=== PATIENT | female | born 1970 ===

== ENCOUNTER 2020-03-27 08:31 | Outpatient (REF) | payer OTHER, MEDICAID, SELFPAY ==
[2020-03-27 11:20] LABS: MANUAL DIFF FLAG NO
[2020-03-27 11:34] LABS: Basophils Absolute Auto 0.1 X10*3/uL (0.0-0.2); Basophils Percent Auto 1.1 % (0-2); Eosinophils Absolute Auto 0.3 X10*3/uL (0.0-0.4); Eosinophils Percent Auto 4.1 % (0-4); Hematocrit 51.7 % (37-47); Hemoglobin 17.2 g/dl (12.0-16.0); Imm Gran Abs Auto 0.02 X10*3/uL (0.00-0.03); Imm Gran Pct Auto 0.3 % (0.0-0.4); Lymphocytes Absolute Auto 2.1 X10*3/uL (1.2-4.9); Lymphocytes Percent Auto 33.8 % (20-40); Mean Corpuscular HGB Conc 33.3 g/dl (31.0-35.0); Mean Corpuscular Hemoglobin 30.6 pg (27.0-33.0); Mean Platelet Volume 10.8 fL (9.4-12.3); Monocytes Absolute Auto 0.6 X10*3/uL (0.1-1.2); Monocytes Percent Auto 10.4 % (2-11); Neutrophils Absolute Auto 3.1 X10*3/uL (2.0-8.3); Neutrophils Percent Auto 50.3 % (45-73); Platelet Count 239 X10*3/uL (160-400); Red Blood Count 5.62 X10*6/uL (4.20-5.50); Red Cell Distribution Width 13.6 % (11.0-16.0); White Blood Count 6.1 X10*3/uL (4.8-10.8)
[2020-03-27 12:07] LABS: Alanine Aminotransferase 18 U/L (0-31); Albumin Level 4.9 g/dL (3.5-5.0); Alkaline Phosphatase 60 U/L (39-117); Anion Gap 15 (12-20); Aspartate Amino Transferase 21 U/L (5-31); Bilirubin Total 1.3 mg/dL (0.0-1.0); Blood Urea Nitrogen 17 mg/dL (9-16); C Reactive Protein 0.05 mg/dL (< or = 0.50); Calcium 9.4 mg/dL (8.4-10.2); Carbon Dioxide 24 mmol/L (22-29); Chloride 103 mmol/L (96-108); Cholesterol 238 mg/dL; Estimated Glomerular Filt Rate > 60; Glucose Fasting 87 mg/dL (60-99); HDL Cholesterol 79 mg/dL; LDL Cholesterol Calculated 140 mg/dl; Potassium 4.3 mmol/l (3.3-5.1); Sodium 138 mmol/L (135-145); Total Protein 7.7 g/dL (6.5-8.0); Triglycerides 96 mg/dL
[2020-03-27 12:08] LABS: TSH reflex Free T4 0.93 mIU/mL (0.32-4.0)
[2020-03-27 12:41] LABS: Erythrocyte Sedimentation Rate 1 MM/HR (0-20)
[2020-03-28 09:22] LABS: Lyme Blot 0.93 index
[2020-03-29 13:53] LABS: IgG P93 Abs NON-REACTIVE; Lyme IgG Line Blot Interp. POSITIVE (NEGATIVE)
== END 2020-03-27 08:32 | disposition home or self-care (01) ==
LOC: HO.HMGCLDS 08:31
PROVIDERS: PCP Internal Medicine; Visit Provider Internal Medicine
DX: E78.00 Pure hypercholesterolemia, unspecified (principal); R07.89 Other chest pain; M50.30 Other cervical disc degeneration, unspecified cervical region; M54.89 Other dorsalgia; M25.511 Pain in right shoulder; M25.512 Pain in left shoulder; F17.200 Nicotine dependence, unspecified, uncomplicated
CPT/HCPCS: 36415; 80053; 80061; 84443; 85025; 85652; 86140; 86618

== ENCOUNTER 2021-02-07 08:20 | Outpatient (REF) | payer OTHER, MEDICAID, SELFPAY ==
[2021-02-07 08:59] LABS: Hemoglobin 15.9 g/dl (12.0-16.0); Mean Corpuscular HGB Conc 34.6 g/dl (31.0-35.0); Mean Corpuscular Hemoglobin 32.1 pg (27.0-33.0); Mean Corpuscular Volume 92.7 fL (80-98); Mean Platelet Volume 9.6 fL (9.4-12.3); Platelet Count 218 X10*3/uL (160-400); Red Blood Count 4.96 X10*6/uL (4.20-5.50); Red Cell Distribution Width 12.8 % (11.0-16.0); White Blood Count 5.5 X10*3/uL (4.8-10.8)
[2021-02-07 09:28] LABS: Anion Gap 12 (12-20); Blood Urea Nitrogen 16 mg/dL (9-16); Calcium 10.1 mg/dL (8.4-10.2); Carbon Dioxide 27 mmol/L (22-29); Chloride 105 mmol/L (96-108); Estimated Glomerular Filt Rate > 60; Glucose Random 95 mg/dL (60-115); Iron 60 mcg/dL (30-160); Percent Iron Saturation 15 % (15-50); Potassium 4.4 mmol/L (3.3-5.1); Sodium 140 mmol/L (135-145); Total Iron Binding Capacity 390 mcg/dL (228-428); Unsaturated Iron Binding 330 ug/dL
[2021-02-07 09:49] LABS: Vitamin D 25-OH Total 29.6 ng/mL (>30)
[2021-02-07 10:05] LABS: Folate 11.9 ng/mL (> or = 4.0); Vitamin B12 423 pg/mL (200-900)
[2021-02-12 03:25] LABS: Zinc 75 mcg/dL (60-130)
== END 2021-02-07 08:21 | disposition home or self-care (01) ==
LOC: HO.LAB 08:20
PROVIDERS: PCP Internal Medicine; Visit Provider Physician Assistant
DX: R20.2 Paresthesia of skin (principal); R42 Dizziness and giddiness; D50.9 Iron deficiency anemia, unspecified
CPT/HCPCS: 36415; 80048; 82306; 82607; 82746; 83540; 83735; 84630; 85027

== ENCOUNTER 2022-04-14 09:59 | Outpatient (REF) | payer OTHER, MEDICAID, SELFPAY ==
--- NOTE | 2022-04-14 14:12 | PFT_ITS ---
Forced vital capacity is 110%, FEV1 96%, FEV1/FVC ratio 69. [id number] is 60% and MVV 109%. Bronchodilator challenge not given because patient was afraid of some side effects. Total lung capacity 116% and residual volume 115%. Diffusion capacity 80%. CONCLUSION: There is evidence of mild obstructive airway disorder mainly involving small airways. As noted above, the bronchodilator challenge was not given. Clinical correlation is recommended. MD PRIYA Sherman/ALIVIA / [phone]
== END 2022-04-14 10:00 | disposition home or self-care (01) ==
LOC: HO.RESP 09:59
PROVIDERS: PCP Internal Medicine; Visit Provider Internal Medicine
DX: J43.9 Emphysema, unspecified (principal); F17.200 Nicotine dependence, unspecified, uncomplicated
CPT/HCPCS: 94010; 94727; 94729

== ENCOUNTER 2022-09-09 12:12 | Outpatient (REF) | payer OTHER, MEDICAID, SELFPAY ==
--- NOTE | ~2022-09-09 | XR_ITS ---
EXAMINATION: XR CHEST CLINICAL INFORMATION: Emphysema COMPARISON: April 24, 2013 TECHNIQUE: 2 views of the chest were obtained. FINDINGS: There is no evidence of acute parenchymal disease, pneumothorax, or significant pleural effusion. There is some blunting of the posterior sulcus and costophrenic angles bilaterally which appears to be related to hyperinflation. Heart normal size. No evidence of pulmonary edema. XR/XR chest 2V IMPRESSION: No acute disease.
== END 2022-09-09 12:13 | disposition home or self-care (01) ==
LOC: HO.HMGCX 12:12
PROVIDERS: PCP Internal Medicine; Visit Provider Internal Medicine
DX: J43.9 Emphysema, unspecified (principal); F17.200 Nicotine dependence, unspecified, uncomplicated
CPT/HCPCS: 71046

== ENCOUNTER 2023-02-18 09:31 | Outpatient (AMB) | payer OTHER, MEDICAID, SELFPAY ==
[2023-02-18 09:32] VITALS: BP 124/82; PULSE 82; O2SAT 99; BMI 22.1
--- NOTE | 2023-02-18 09:32 | A.OFFPC_ITS ---
Vital Signs 02/18/23 09:32 Height 5 ft 3 in Weight 124 lb 8 oz BMI 22.1 BP 124/82 Blood Pressure Location Lt brachial Position Sitting Pulse 82 Pulse Source Pulse Oximeter Pulse Oximetry (%) 99 Oxygen Delivery Method Room Air Intake Visit Reasons: elevated BP, dysphagia Take Off Man Required: No Accompanied by: Self / Same As Patient Allergies bee pollen [BEE STINGS] Allergy (Severe, Verified 02/18/23 09:59) SWELLING cortisone [CORTISONE] Allergy (Intermediate, Verified 02/18/23 09:59) EUPHORIC REACTION latex [LATEX] Allergy (Intermediate, Verified 02/18/23 09:59) RASH Fish Containing Products Allergy (Unknown, Verified 02/18/23 09:59) SENSITIVE - RED MOSQUITOS Allergy (Intermediate, Uncoded 02/18/23 09:59) SWELLING Medication List - Last Reconciled 02/18/23 by Kory Leon MD clindamycin phosphate 1% 1 appl topical BID 30 days clindamycin-benzoyl peroxide 1-5 % 1 appl topical DAILY 30 days dapsone 5% topical hydrocodone-acetaminophen 5-325 mg 1 tab PO Q8H PRN 7 days mupirocin 2% 1 appl topical TID naproxen 500 mg PO BID PRN 30 days nicotine 1 patch transdermal Q24H 28 days silver sulfadiazine 1% (Silvadene) 1 appl topical BID PRN 5 days tretinoin 0.05% 1 appl topical BEDTIME Tobacco use date assessed: 02/18/23 Dental Screening Dental Screen Date: 02/18/23 Did you have a dental visit in the last 12 months?: Yes Did you have a dental problem in the last 6 months where you did not have access to dental care?: No Was dental information given to patient?: Patient has dentist HPI elevated BP, dysphagia HPI Details Patient comes in today for her follow up visit States that she was sick about a month ago (with cold symptoms and cough/congestion) but she did not really take anything other than some OTC meds occasionally States that most of her symptoms have since cleared up but her ears still feel full often Also still has some occasional cough (cough is non-productive) - is still smoking Relates (+) fatigue and frequent muscle aches and pains especially now with the cold weather starting - has fibromyalgia Still has on and off headaches but denies any fever or dizziness Notes (+) sensation of fullness over her left sinuses States that the left side of her throat still feels like there is something there and this occasionally feels like something is dripping down from there; denies any sore throat States that she missed her appt with ENT a few weeks ago - wants to know if she needs another referral She denies any chest pains, no SOB although her chest still feels somewhat tight at times - wants to know if her PFTs done last March 2022 came out okay No nausea/vomiting, no abdominal pain No change in bowel habits noted Needs a few of her Rx refilled PFSH Medical History Cervical disc disease Right leg pain Emphysema lung Smoker Somatoform pain disorder Fibromyalgia Lyme disease Surgical History History of prior ablation treatment History of tooth extraction Family History Father Medical history unknown Mother Hypertension CVD (cardiovascular disease) Social History Housing: House Alcohol intake: never Patient Tobacco Use Status: Current everyday Tobacco user Tobacco use type: Cigarette Cigarettes Per Day: 12 e-Cigarette/Vaping Use: Former Use Second Hand Smoke Exposure: No service: No Current occupational status: employed and disabled Current occupational exposures/hazards: No Cognitive needs: Yes Hearing needs: No Vision needs: No Questionnaire PHQ-9 Over the last 2 weeks, how often have you been bothered by any of the following problems? 1. Little interest or pleasure in doing things: not at all 2. Feeling down, depressed, or hopeless: not at all 3. Trouble falling or staying asleep, or sleeping too much: not at all 4. Feeling tired or having little energy: not at all 5. Poor appetite or overeating: not at all 6. Feeling bad about yourself - or that you are a failure or have let yourself or your family down: not at all 7. Trouble concentrating on things, such as reading the newspaper or watching television: not at all 8. Moving or speaking so slowly that other people could have noticed. Or the opposite - being so fidgety or restless that you have been moving around a lot more than usual: not at all 9. Thoughts that you would be better off or of hurting yourself in some way: not at all Total score: 0 Depression Screening Interpretation: Negative Depression Screening Done: Yes 08277 - PHQ-9 Billing: Yes Source: Developed by Drs. Forest Whiting, Maria Crowe, Jose Carlos Rinaldi and colleagues, with an educational inna from [employer]. Thrive Questionnaire Date Thrive assessed: 02/18/23 I am a: Patient What is your living situation today?: I have a steady place to live Within the past 12 months, did the food you bought not last and you didn't have the money to get more?: Never true Within the past 12 months, did you worry whether your food would run out before you got money to buy more?: Never true Do you have trouble paying for medicines?: No Do you have trouble getting transportation to medical appointments?: No Do you have trouble paying your heating and electricity bill?: No Do you have trouble taking care of your child, family member or friend?: No Do you have trouble with day-to-day activities such as bathing, preparing meals, shopping, managing finances, etc.?: No Are you currently unemployed and looking for a job?: No Are you interested in more education?: No Please select the resources that you would like help with: None Currently or been in a relationship where the following occur: no concerns reported AUDIT C Alcohol Use Questionnaire (AUDIT-C) 1. How often do you have a drink containing alcohol?: Never Total Score: 0 Score Reviewed/Action Taken: Yes LOUISE-7 AMB Questionnaire LOUISE-7 Date LOUISE - 7 assessed: 02/18/23 Feeling nervous, anxious, or on edge: 0 = Not at all Not being able to stop or control worryin = Not at all Worrying too much about different things: 0 = Not at all Trouble relaxin = Not at all Being so restless that it is hard to sit still: 0 = Not at all Becoming easily annoyed or irritable: 0 = Not at all Feeling afraid as if something awful might happen: 0 = Not at all Total LOUISE-7 score (0-4 normal; 5-9 mild; 10-14 moderate; 15-21 severe): 0 Source: Developed by Drs. Forest Whiting, Maria Crowe, Jose Carlos Rinaldi and colleagues, with an educational inna from [employer]. Review of Systems Const Reports fatigue (chronic), Denies fever(s) and Reports headache(s) (on and off) ENT Details: feels some lumps on the sides of her neck/throat Reports dysphagia (mostly due to recurrent sensation of tightness in her throat), Denies dizziness, Denies otalgia (but ears feel full), Reports headache(s) (on and off), Denies neck mass (but feels a recurrent sensation of tightness on the left anterior neck area), Reports neck pain (chronic, especially over the left side), Denies odynophagia, Denies sinus pain, Reports sinus pressure (on the left side) and Denies sore throat Card Denies chest pain, Denies palpitations and Reports dyspnea on exertion (mild, chronic) Resp Denies chest congestion (but chest feels tight at times), Reports cough (on and off, non-productive), Denies pain on inspiration, Reports dyspnea on exertion (mild, chronic) and Denies wheezing GI Denies abdominal pain, Denies constipation, Reports dysphagia (mostly due to recurrent sensation of tightness in her throat), Denies heartburn, Denies diarrhea, Denies nausea, Denies odynophagia and Denies vomiting Denies difficulty voiding, Denies nocturia and Denies dysuria Musc Details: (+) heavy sensation, pain and discomfort over the right lower extremity Reports back pain, Reports myalgias (diffuse) and Reports neck pain (chronic, especially over the left side) Neuro Denies dizziness and Reports headache(s) (on and off) Endo Reports fatigue (chronic) and Denies palpitations Aller/Immun Denies wheezing Physical exam (Primary Care) Vital Signs: Last Vital Signs Pulse 82 02/18/23 09:32 BP 124/82 02/18/23 09:32 Pulse Ox 99 02/18/23 09:32 Oxygen Delivery Method Room Air 02/18/23 09:32 BMI result Body Mass Index 22.1 Tobacco/Smoking Status: Tobacco use Status Tobacco use date assessed 11/02/23 11/02/23 09:37 Patient Tobacco Use Status Current everyday Tobacco 02/18/23 09:37 Tobacco use type Cigarette 02/18/23 09:37 e-Cigarette/Vaping Use Former Use 02/18/23 09:37 PHQ-9: PHQ-9 Score PHQ-9: Total score 0 02/18/23 09:37 Depression Screening Interpretation: Negative Thrive Assessment: Date of Thrive Assessment Date Thrive assessed 02/18/23 02/18/23 09:37 Currently or been in a relationship where the following occur: no concerns reported Const General: no acute distress, alert and tired appearing HENMT Ears: TM's normal bilaterally and EAC's normal Face and sinus: Yes sinuses nontender Throat: Yes posterior oropharynx normal and Yes tonsils normal (no TP congestion) Neck Other: (+) palpable, non-tender lymph nodes over the anterolateral aspect of her neck bilaterally; (+) tenderness over the muscles around the neck, especially over the posterior and left posterolateral aspect of the neck Resp Auscultation: no rales, rhonchi (occasional) throughout, no wheezes and diminished lung sounds (slightly, bilaterally) Cardio Rate: regular rate Rhythm: regular rhythm Heart sounds: no murmurs GI Palpation (GI): Soft to palpation and nontender Auscultation: normal bowel sounds Back/Spine/Pelvis Cervical Spine: cervical muscular tenderness and Cervical spine tenderness Thoracic/Lumbar Spine: lumbar spinal tenderness Skin Rashes: no rashes Extrem General: Yes no clubbing, cyanosis or edema Assessment and Plan Assessment & Plan (1) Bronchitis: Code(s): J40 - Bronchitis, not specified as acute or chronic Plan: Will start her on Augmentin 875 mg BID x 10 days Advised that this should cover any potential infections she would have in her ears, sinuses and lungs (2) Emphysema lung: Comment: Emphysematous findings are noted in her chest CT report done at [facility] in 2019. Chest x-ray done in April 2020 also mentioned (+) hyperinflation of the lungs and with her smoking history, advised that she most likely has at least early COPD Code(s): J43.9 - Emphysema, unspecified Qualifiers: Emphysema type: centrilobular Qualified Code(s): J43.2 - Centrilobular emphysema Plan: Reminded patient that her repeat chest x-rays done back in August 2022 revealed (+) some blunting of the posterior sulcus and costophrenic angles bilaterally that appears to be related to hyperinflation but her chest x-ray was otherwise normal PFTs done in March 2022 were inconclusive as patient declined the bronchodilators for the test; preliminary results show some evidence of mild obstructive airway disease (3) Cervical disc disease: Code(s): M50.90 - Cervical disc disorder, unspecified, unspecified cervical region Plan: Patient has been to pain management (with both [facility] and [facility]) and has received injection Tx in the past but could not tolerate the injected medication(s), including a trial of Botox, due to side effects and remains NOT interested in going back to pain management States that she has mostly been getting by with a combination of neck exercises, massage therapy and her Rxs that include Naproxen 500 mg BID PRN and Vicodin 5- 325 mg PRN occasionally Offered to send her for repeat cervical spine x-rays but she declined as she does not think that it is going to provide any additional helpful information for us at this time and she does not want to keep getting exposed to x-rays needlessly (4) Dysphagia: Code(s): R13.10 - Dysphagia, unspecified Qualifiers: Dysphagia type: unspecified Qualified Code(s): R13.10 - Dysphagia, unspecified Plan: Barium swallow done at [facility] back in 2018 came out normal Advised that it has been a few years now and a repeat barium swallow may be helpful in helping us figure out her symptoms but she declined - states that she will call for order if she changes her mind about this She was referred previously to ENT for evaluation and recommendations but she missed her appt a few weeks ago - is advised that her referral is still valid and all she needs to do now is to call up the ENT office and ask for another appt to be scheduled (5) Elevated blood pressure reading: Code(s): R03.0 - Elevated blood-pressure reading, without diagnosis of hypertension Plan: BP appears much better today Advised that her previous high BP readings may be due to her increased pain back then Reinforced low sodium diet to help control her blood pressure better and reminded to try to check her BP regularly to monitor this (6) Fibromyalgia: Code(s): M79.7 - Fibromyalgia Plan: Encouraged again on regular exercise and physical activity to help manage her fibromyalgia symptoms better (7) Smoker: Code(s): F17.200 - Nicotine dependence, unspecified, uncomplicated Plan: Counseled again on smoking cessation Patient felt that she was able to quit while she was on nicotine patches but still could not come down from the 14 mg dose Plan To return in 6 months for her next annual physical examination Medications: New amoxicillin-pot clavulanate 875-125 mg 1 tab PO BID 10 days 20 tabs 0RF Refilled clindamycin-benzoyl peroxide 1-5 % 1 appl topical DAILY 30 days 50 grams 1RF naproxen take with food 500 mg PO BID 30 days PRN 60 tabs 0RF pain Coding Level of Care Code Est Pt Level 4 (80242) Diagnoses Bronchitis J40 Centrilobular emphysema J43.2 Emphysema type: centrilobular Cervical disc disease M50.90 Dysphagia, unspecified type R13.10 Dysphagia type: unspecified Elevated blood pressure reading R03.0 Fibromyalgia M79.7 Smoker F17.200
== END 2023-02-18 10:09 | disposition home or self-care (01) ==
PROVIDERS: Visit Provider Internal Medicine
DX: J40 Bronchitis, not specified as acute or chronic (principal); J43.2 Centrilobular emphysema; M50.90 Cervical disc disorder, unspecified, unspecified cervical region; R13.10 Dysphagia, unspecified; R03.0 Elevated blood-pressure reading, without diagnosis of hypertension; M79.7 Fibromyalgia; F17.200 Nicotine dependence, unspecified, uncomplicated
CPT/HCPCS: 99214

== ENCOUNTER 2023-08-26 08:58 | Outpatient (AMB) | payer OTHER, SELFPAY ==
[2023-08-26 09:07] VITALS: BP 156/102; PULSE 76; O2SAT 97; BMI 21.7
--- NOTE | 2023-08-26 09:07 | A.OFFPC_ITS ---
Vital Signs 08/26/23 09:07 Height 5 ft 3 in Weight 122 lb 4 oz BMI 21.7 BP 156/102 H Blood Pressure Location Lt brachial Position Sitting Pulse 76 Pulse Source Pulse Oximeter Pulse Oximetry (%) 97 Oxygen Delivery Method Room Air Intake Visit Reasons: Annual Exam Intake Note: Patient is here today for a physical. 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 Accompanied by: Self / Same As Patient Allergies bee pollen [BEE STINGS] Allergy (Severe, Verified 08/26/23 09:37) SWELLING cortisone [CORTISONE] Allergy (Intermediate, Verified 08/26/23 09:37) EUPHORIC REACTION latex [LATEX] Allergy (Intermediate, Verified 08/26/23 09:37) RASH Fish Containing Products Allergy (Unknown, Verified 08/26/23 09:37) SENSITIVE - RED MOSQUITOS Allergy (Intermediate, Uncoded 08/26/23 09:37) SWELLING Medication List - Last Reconciled 08/26/23 by Kory Leon MD clindamycin phosphate 1% 1 appl topical BID 30 days clindamycin-benzoyl peroxide 1-5 % 1 appl topical DAILY 30 days dapsone 5% topical hydrocodone-acetaminophen 5-325 mg 1 tab PO Q8H PRN 7 days mupirocin 2% 1 appl topical TID naproxen 500 mg PO BID PRN 30 days nicotine 1 patch transdermal Q24H 28 days silver sulfadiazine 1% (Silvadene) 1 appl topical BID PRN 5 days tretinoin 0.05% 1 appl topical BEDTIME Tobacco use date assessed: 08/26/23 Dental Screening Dental Screen Date: 08/26/23 Did you have a dental visit in the last 12 months?: No Did you have a dental problem in the last 6 months where you did not have access to dental care?: No Was dental information given to patient?: No (No Dental Insurance) HPI Annual Exam HPI Details Patient comes in today for his annual physical examination States that she has been experiencing frequent burning and aching sensation in the muscles of her legs for the past 2 months Adds that she has also been experiencing increased pain over the base of her skull on both sides in addition to her chronic neck pain States that everything else feels mostly the same, She still has on and off headaches; denies any fever or dizziness States that it still feels like there is something in her throat often and she sometimes ends up choking when she is swallowing due to her neck tightness She denies any chest pains, her chest still feels somewhat tight at times and she relates chronic HOPPER but states that this is also mostly the same as before No nausea/vomiting, no abdominal pain No change in bowel habits noted She denies any acute urinary symptoms Had her screening mammogram last done on 06/22/2013; she has since refused to get another mammogram again as she always ends up in a lot of pain after the mammogram procedure Had her pap smear and gynecology exam done at [facility] years ago ~ 10 yrs Also states that her screening colonoscopy was ~10 yrs ago (12/26/13) with Dr. Green [facility] Medical History Cervical disc disease Right leg pain Emphysema lung Smoker Somatoform pain disorder Fibromyalgia Lyme disease Surgical History History of prior ablation treatment History of tooth extraction Family History Father Medical history unknown Mother Hypertension CVD (cardiovascular disease) Social History Housing: House Alcohol intake: never Patient Tobacco Use Status: Current everyday Tobacco user Tobacco use type: Cigarette Cigarettes Per Day: 12 e-Cigarette/Vaping Use: Former Use Second Hand Smoke Exposure: No service: No Current occupational status: employed and disabled Current occupational exposures/hazards: No Cognitive needs: Yes Hearing needs: No Vision needs: No Questionnaire PHQ-9 Over the last 2 weeks, how often have you been bothered by any of the following problems? 1. Little interest or pleasure in doing things: not at all 2. Feeling down, depressed, or hopeless: not at all 3. Trouble falling or staying asleep, or sleeping too much: not at all 4. Feeling tired or having little energy: not at all 5. Poor appetite or overeating: not at all 6. Feeling bad about yourself - or that you are a failure or have let yourself or your family down: not at all 7. Trouble concentrating on things, such as reading the newspaper or watching television: not at all 8. Moving or speaking so slowly that other people could have noticed. Or the opposite - being so fidgety or restless that you have been moving around a lot more than usual: not at all 9. Thoughts that you would be better off or of hurting yourself in some way: not at all Total score: 0 Depression Screening Interpretation: Negative Depression Screening Done: Yes 09103 - PHQ-9 Billing: Yes Source: Developed by Drs. Forest Whiting, Maria Crowe, Jose Carlos Rinaldi and colleagues, with an educational inna from [employer]. Thrive Questionnaire Date Thrive assessed: 08/26/23 I am a: Patient What is your living situation today?: I have a steady place to live Within the past 12 months, did the food you bought not last and you didn't have the money to get more?: Never true Within the past 12 months, did you worry whether your food would run out before you got money to buy more?: Never true Do you have trouble paying for medicines?: No Do you have trouble getting transportation to medical appointments?: No Do you have trouble paying your heating and electricity bill?: No Do you have trouble taking care of your child, family member or friend?: No Do you have trouble with day-to-day activities such as bathing, preparing meals, shopping, managing finances, etc.?: No Are you currently unemployed and looking for a job?: No Are you interested in more education?: No Please select the resources that you would like help with: None Currently or been in a relationship where the following occur: no concerns reported THRIVE Score: 0 AUDIT C Alcohol Use Questionnaire (AUDIT-C) 1. How often do you have a drink containing alcohol?: Never 3. How often do you have six or more drinks on one occasion?: Never Total Score: 0 Score Reviewed/Action Taken: Yes LOUISE-7 AMB Questionnaire LOUISE-7 Date LOUISE - 7 assessed: 08/26/23 Feeling nervous, anxious, or on edge: 0 = Not at all Not being able to stop or control worryin = Not at all Worrying too much about different things: 0 = Not at all Trouble relaxin = Not at all Being so restless that it is hard to sit still: 0 = Not at all Becoming easily annoyed or irritable: 0 = Not at all Feeling afraid as if something awful might happen: 0 = Not at all Total LOUISE-7 score (0-4 normal; 5-9 mild; 10-14 moderate; 15-21 severe): 0 Source: Developed by Drs. Forest Whiting, Maria Crowe, Jose Carlos Rinaldi and colleagues, with an educational inna from [employer]. LOUISE-7 Assessment Billing LOUISE-7 Assessment Tool: LOUISE-7 Assessment 33304 Review of Systems Const Denies chills, Reports fatigue (chronic), Denies fever(s) and Reports h eadache(s) (on and off) Eyes Denies blurry vision, Denies change in vision, Denies irritation and Denies itchy eyes ENT Details: feels some lumps on the sides of her neck/throat Reports dysphagia (mostly due to recurrent sensation of tightness in her throat), Denies dizziness, Denies otalgia (but ears feel full often), Reports headache(s) (on and off), Denies neck mass (but feels a recurrent sensation of tightness on the left anterior neck area), Reports neck pain (chronic, especially over the left side), Denies odynophagia, Denies sinus pain and Denies sore throat Card Denies chest pain, Denies palpitations and Reports dyspnea on exertion (mild, chronic) Resp Denies chest congestion (but chest feels tight at times), Reports cough (on and off, non-productive), Denies pain on inspiration, Reports dyspnea on exertion (mild, chronic) and Denies wheezing GI Denies abdominal pain, Denies constipation, Reports dysphagia (mostly due to recurrent sensation of tightness in her throat), Denies heartburn, Denies diarrhea, Denies nausea, Denies odynophagia and Denies vomiting Denies difficulty voiding, Denies nocturia, Denies dysuria and Denies urinary urgency Musc Details: (+) heavy sensation, pain and discomfort over the right lower extremity Reports back pain, Reports myalgias (diffuse) and Reports neck pain (chronic, especially over the left side) Skin/Breast Denies breast pain, Denies breast mass, Denies change in pigmentation, Denies lesions, Denies rash and Denies unusual bruising Neuro Denies dizziness and Reports headache(s) (on and off) Psych Denies anxiety and Denies depression Endo Reports fatigue (chronic) and Denies palpitations Sina/Lymph Denies easy bruising Aller/Immun Denies itchy eyes and Denies wheezing Physical exam (Primary Care) Vital Signs: Last Vital Signs Pulse 76 08/26/23 09:07 BP 156/102 H 08/26/23 09:07 Pulse Ox 97 08/26/23 09:07 Oxygen Delivery Method Room Air 08/26/23 09:07 BMI result Body Mass Index 21.7 Tobacco/Smoking Status: Tobacco use Status Tobacco use date assessed 08/26/23 08/26/23 09:09 Patient Tobacco Use Status Current everyday Tobacco 08/26/23 09:09 Tobacco use type Cigarette 08/26/23 09:09 e-Cigarette/Vaping Use Former Use 08/26/23 09:09 PHQ-9: PHQ-9 Score PHQ-9: Total score 0 08/29/23 22:38 Depression Screening Interpretation: Negative Thrive Assessment: Date of Thrive Assessment Date Thrive assessed 08/26/23 08/26/23 09:17 Currently or been in a relationship where the following occur: no concerns reported Const General: no acute distress, alert and tired appearing Orientation/consciousness: patient oriented x3 HENMT Head: Yes normocephalic and Yes atraumatic Ears: TM's normal bilaterally and EAC's normal General nose exam: No nasal discharge present Face and sinus: Yes sinuses nontender Teeth and gingiva: dentition normal Throat: Yes posterior oropharynx normal and Yes tonsils normal (no TP congestion) Eyes Eyelids: Yes eyelids normal Conjunctivae: conjunctivae normal Pupils: Equal, round and reactive pupils present EOM: EOMs intact bilaterally Neck Other: (+) palpable, non-tender lymph nodes over the anterolateral aspect of her neck bilaterally; (+) tenderness over the muscles around the neck, especially over the posterior and left posterolateral aspect of the neck Neck: Yes no lymphadenopathy and Yes supple Thyroid: Thyroid normal Resp Auscultation: no rales, rhonchi (occasional) throughout, no wheezes and diminished lung sounds (slightly, bilaterally) Cardio Rate: regular rate Rhythm: regular rhythm Heart sounds: no murmurs GI Palpation (GI): Soft to palpation, nontender and No hepatosplenomegaly present Auscultation: normal bowel sounds General: Yes no CVA tenderness Back/Spine/Pelvis Back: no CVA tenderness Cervical Spine: cervical muscular tenderness and Cervical spine tenderness Thoracic/Lumbar Spine: lumbar spinal tenderness Skin Lesions: no lesions Rashes: no rashes Neuro General: patient oriented x3, moves all extremities, no focal motor deficits and CN's II-XI intact bilaterally Cranial nerves: Yes Equal, round and reactive pupils present Cognition (Neuro): normal cognition Gait exam (Neuro): Normal gait present Extrem General: Yes no clubbing, cyanosis or edema Assessment and Plan Assessment & Plan (1) Annual physical exam: Code(s): Z00.00 - Encounter for general adult medical examination without abnormal findings Plan: Check labs Patient declines to go for repeat mammogram (2) Emphysema lung: Comment: Emphysematous findings are noted in her chest CT report done at [facility] in 2019. Chest x-ray done in April 2020 also mentioned (+) hyperinflation of the lungs and with her smoking history, advised that she most likely has at least early COPD Code(s): J43.9 - Emphysema, unspecified Qualifiers: Emphysema type: centrilobular Qualified Code(s): J43.2 - Centrilobular emphysema Plan: Reminded patient again that her repeat chest x-rays done back in August 2022 revealed (+) some blunting of the posterior sulcus and costophrenic angles bilaterally - these appear to be related to hyperinflation but her chest x-ray was otherwise normal PFTs done in March 2022 were inconclusive as patient declined the bronchodilators for the test; preliminary results show some evidence of mild obstructive airway disease (3) Cervical disc disease: Code(s): M50.90 - Cervical disc disorder, unspecified, unspecified cervical region Plan: Patient has been to pain management (with both [facility] and [facility]) and has received injection Tx in the past but could not tolerate the injected medication(s), including a trial of Botox, due to side effects and remains NOT interested in going back to pain management States that she has mostly been getting by with a combination of neck exercises, massage therapy and her Rxs that include Naproxen 500 mg BID PRN and Vicodin 5- 325 mg PRN occasionally Have offered again to send her for repeat cervical spine x-rays but she declined as she does not think that it is going to provide any additional helpful information for us at this time and she does not want to keep getting exposed to x-rays needlessly (4) Dysphagia: Code(s): R13.10 - Dysphagia, unspecified Qualifiers: Dysphagia type: unspecified Qualified Code(s): R13.10 - Dysphagia, unspecified Plan: Barium swallow done at [facility] back in 2019 came out normal Advised that it has been a few years now and a repeat barium swallow may be helpful in helping us figure out her symptoms but she declined - states that she will call for order if she changes her mind about this She was referred previously to ENT for evaluation and recommendations but she missed her appt and does not look like she ever rescheduled her appt (5) Elevated blood pressure reading: Code(s): R03.0 - Elevated blood-pressure reading, without diagnosis of hypertension Plan: BP appears to be very high again today Advised again that her high BP readings may be due to her increased pain Reinforced low sodium diet to help control her blood pressure better and reminded to try to check her BP regularly to monitor this (6) Fibromyalgia: Code(s): M79.7 - Fibromyalgia Plan: Encouraged again on regular exercise and physical activity to help manage her fibromyalgia symptoms better Per request, will try starting her again on Methocarbamol 750 mg TID as needed (7) Smoker: Code(s): F17.200 - Nicotine dependence, unspecified, uncomplicated Plan: Counseled again on smoking cessation Patient has tried quitting unsuccessfully in the past with nicotine patches (8) Cervical cancer screening: Code(s): Z12.4 - Encounter for screening for malignant neoplasm of cervix Plan: Will refer her to Gynecology for her annual pap smear and gynecology exam (9) Colon cancer screening: Code(s): Z12.11 - Encounter for screening for malignant neoplasm of colon Plan: Will refer her to GI for repeat screening colonoscopy Plan Follow up in 6 months Orders: Orders Complete Blood Count Auto Diff 08/26/23 D64.9 - Anemia, unspecified, Z00.00 - Encounter for general adult medical examination without abnormal findings Comprehensive [place]. Panel Fast 08/26/23 E78.00 - Pure hypercholesterolemia, unspecified, Z00.00 - Encounter for general adult medical examination without abnormal findings TSH reflex Free T4 08/26/23 E78.00 - Pure hypercholesterolemia, unspecified, Z00.00 - Encounter for general adult medical examination without abnormal findings UA CC w/rflx Micro + Cult 08/26/23 R30.0 - Dysuria, Z00.00 - Encounter for general adult medical examination without abnormal findings Vitamin D 25-OH Total 08/26/23 E55.9 - Vitamin D deficiency, unspecified, Z00.00 - Encounter for general adult medical examination without abnormal findings Erythrocyte Sedimentation Rate 08/26/23 M25.50 - Pain in unspecified joint, M79.10 - Myalgia, unspecified site, M79.7 - Fibromyalgia HAROLDO Reflex Titer and Pattern 08/26/23 M25.50 - Pain in unspecified joint, M79.10 - Myalgia, unspecified site Rheumatoid Factor 08/26/23 M25.50 - Pain in unspecified joint, M79.10 - Myalgia, unspecified site Lyme IgG/IgM w/reflex to WB 08/26/23 M25.50 - Pain in unspecified joint, M79.10 - Myalgia, unspecified site CK, Total+Isoenzymes, Serum 08/26/23 M25.50 - Pain in unspecified joint, M79.10 - Myalgia, unspecified site Lipid Panel 08/26/23 E78.00 - Pure hypercholesterolemia, unspecified, Z00.00 - Encounter for general adult medical examination without abnormal findings Vitamin B12 and Folate 08/26/23 E53.8 - Deficiency of other specified B group vitamins, Z00.00 - Encounter for general adult medical examination without abnormal findings C Reactive Protein 08/26/23 M25.50 - Pain in unspecified joint, M79.10 - Myalgia, unspecified site Referrals Gastroenterology Referral Z12.11 - Encounter for screening for malignant neoplasm of colon NATURAL RESOURCE OFFICER Referral Z12.4 - Encounter for screening for malignant neoplasm of cervix Medications: New methocarbamol 750 mg PO Q8H PRN 60 tabs 2RF muscle pain/spasms Review Patient declined Mammogram: 08/26/23 Coding Level of Care Code Est Pt Prev Care 40-64y(45010) Diagnoses Annual physical exam Z00.00 Centrilobular emphysema J43.2 Emphysema type: centrilobular Cervical disc disease M50.90 Dysphagia, unspecified type R13.10 Dysphagia type: unspecified Elevated blood pressure reading R03.0 Fibromyalgia M79.7 Smoker F17.200 Cervical cancer screening Z12.4 Colon cancer screening Z12.11 Additional Codes LOUISE-7 Assessment Billing - LOUISE-7 Assessment Tool: LOUISE-7 Assessment 38353 ([id number])
== END 2023-08-26 10:02 | disposition home or self-care (01) ==
PROVIDERS: PCP Internal Medicine; Visit Provider Internal Medicine
DX: Z00.00 Encounter for general adult medical examination without abnormal findings (principal); M79.7 Fibromyalgia; J43.2 Centrilobular emphysema; M50.90 Cervical disc disorder, unspecified, unspecified cervical region; R13.10 Dysphagia, unspecified; R03.0 Elevated blood-pressure reading, without diagnosis of hypertension; F17.200 Nicotine dependence, unspecified, uncomplicated; Z12.4 Encounter for screening for malignant neoplasm of cervix; Z12.11 Encounter for screening for malignant neoplasm of colon
CPT/HCPCS: 99396

== ENCOUNTER 2024-01-25 08:34 | Outpatient (AMB) | payer OTHER, SELFPAY ==
[2024-01-25 08:37] VITALS: PULSE 68; O2SAT 98; BMI 22.2
--- NOTE | 2024-01-25 08:37 | A.OFFVIS_ITS ---
Vital Signs 01/25/24 08:37 Height 5 ft 3 in Weight 125 lb 3.561 oz BMI 22.2 Blood Pressure Location Rt brachial Position Sitting Pulse 68 Pulse Source Pulse Oximeter Pulse Oximetry (%) 98 Oxygen Delivery Method Room Air Intake Visit Reasons: Colonoscopy Screening Intake Note: Janette presents in office today for a scheduled colo consult. CC; This is a recall colo (Peter 2013). Pt reports that they are not comfortable with having a male provider. Pt does report that this is a recall colo but will not confirm or deny if they have new sx or concerns. Computer Technologist Required: No Allergies bee pollen [BEE STINGS] Allergy (Severe, Verified 01/25/24 08:43) SWELLING cortisone [CORTISONE] Allergy (Intermediate, Verified 01/25/24 08:43) EUPHORIC REACTION latex [LATEX] Allergy (Intermediate, Verified 01/25/24 08:43) RASH Fish Containing Products Allergy (Unknown, Verified 01/25/24 08:43) SENSITIVE - RED MOSQUITOS Allergy (Intermediate, Uncoded 08/26/23 09:37) SWELLING HPI HPI Colonoscopy Screening: Details: 53 year old? female with past medical history of cervical disc disease, fibromyalgia, emphysema is here today for pre colonoscopy screening.? Patient was sent to us by her PCP.? Colonoscopy in the past in 2013 normal no polyps found.? Patient denies any gastrointestinal symptoms in the past or at present.? Denies any personal or family history of gastrointestinal disease, colon polyps, or cancer.? Patient does not wish to go for colonoscopy. Would like to get Cologuard done. [facility] Medical History Cervical disc disease Right leg pain Emphysema lung Smoker Somatoform pain disorder Fibromyalgia Lyme disease Surgical History History of prior ablation treatment History of tooth extraction Family History Father Medical history unknown Mother Hypertension CVD (cardiovascular disease) Social History Housing: House Alcohol intake: never Patient Tobacco Use Status: Current everyday Tobacco user Tobacco use type: Cigarette Cigarettes Per Day: 12 e-Cigarette/Vaping Use: Former Use Second Hand Smoke Exposure: No service: No Current occupational status: employed and disabled Current occupational exposures/hazards: No Cognitive needs: Yes Hearing needs: No Vision needs: No Review of Systems Const Denies weight gain and Denies weight loss ENT Reports no additional complaints, Denies dysphagia and Denies odynophagia Card Reports no additional complaints Resp Reports no additional complaints GI Denies abdominal pain, Denies belching, Denies melena, Denies bloating, Denies change in bowel habits, Denies dysphagia, Denies excessive flatus, Denies dyspepsia, Denies heartburn, Denies diarrhea, Denies loose stools, Denies nausea, Denies odynophagia and Denies vomiting Musc Reports no additional complaints Neuro Reports no additional complaints Psych Reports no additional complaints Endo Reports no additional complaints Physical Exam Vital Signs: Last Vital Signs Pulse 68 01/25/24 08:37 Pulse Ox 98 01/25/24 08:37 Oxygen Delivery Method Room Air 01/25/24 08:37 BMI result Body Mass Index 22.2 Const General: healthy appearing, no acute distress and well developed Nutritional Appearance: well nourished Orientation/consciousness: patient oriented x3 Resp Effort & Inspection: normal respiratory effort, able to speak in complete sentences, no tracheal deviation and symmetric chest movement Auscultation: clear to auscultation bilaterally Cardio Rate: regular rate GI Inspection: Yes normal to inspection and No distended Palpation (GI): Soft to palpation, not firm, nontender and No hepatosplenomegaly present Auscultation: normal bowel sounds General: Yes no CVA tenderness Back/Spine/Pelvis Back: no CVA tenderness Skin General skin exam: elasticity normal, turgor normal and dry skin Neuro General: patient oriented x3 Psych Appearance: grossly normal Mental Status: mental status grossly normal Assessment & Plan Assessment & Plan (1) Colon cancer screening: Code(s): Z12.11 - Encounter for screening for malignant neoplasm of colon Category: Medical Plan Long discussion with patient about the importance of screening for colon cancer with colonoscopy. Patient would like to have Cologuard done 1st. Will have her do Cologuard 1st. Informed patient that if Cologuard is positive patient should go for colonoscopy. Patient is agreeable to plan of care and verbalizes understanding of instructions. She was given the opportunity to ask questions and all questions answered. Thank you for allowing me to participate in her care Coding Level of Care Code New Pt Level 3 (12206) Diagnoses Colon cancer screening Z12.11 Time Spent (min) 40 Comment 30 minutes spent with patient and additional 10 minutes spent reviewing her records
== END 2024-01-25 09:30 | disposition home or self-care (01) ==
PROVIDERS: PCP Internal Medicine; Visit Provider Nurse Practitioner Family
DX: Z01.818 Encounter for other preprocedural examination (principal); Z12.11 Encounter for screening for malignant neoplasm of colon
CPT/HCPCS: S0285

== ENCOUNTER → 2024-01-25 08:34 | Outpatient (BNVA) | payer OTHER, SELFPAY | PROVIDERS: PCP Internal Medicine; Visit Provider Nurse Practitioner Family ==

== ENCOUNTER 2024-02-07 07:15 | Outpatient (REF) | payer OTHER, SELFPAY ==
[2024-02-07 10:12] LABS: MANUAL DIFF FLAG NO
[2024-02-07 10:15] LABS: Appearance Urine Clear; Color Urine Yellow; Glucose Urine UA Negative (Negative); Leukocyte Esterase Urine Negative (Negative); Nitrite Urine Negative (Negative); Specific Gravity - Urine 1.015 (1.005-1.025); Urine Blood Negative (Negative); Urine Ketones Negative (Negative); Urine Protein Negative (Neg-Trace)
[2024-02-07 10:33] LABS: Basophils Absolute Auto 0.1 X10*3/uL (0.0-0.2); Basophils Percent Auto 1.5 % (0-2); Eosinophils Absolute Auto 0.3 X10*3/uL (0.0-0.4); Eosinophils Percent Auto 5.9 % (0-4); Hematocrit 47.2 % (37.0-47.0); Hemoglobin 15.8 g/dl (12.0-16.0); Imm Gran Abs Auto 0.01 X10*3/uL (0.00-0.03); Imm Gran Pct Auto 0.2 % (0.0-0.4); Lymphocytes Absolute Auto 2.3 X10*3/uL (1.2-4.9); Lymphocytes Percent Auto 43.9 % (20-40); Mean Corpuscular HGB Conc 33.5 g/dl (31.0-35.0); Mean Corpuscular Hemoglobin 31.3 pg (27.0-33.0); Mean Corpuscular Volume 93.5 fL (80.0-98.0); Monocytes Absolute Auto 0.5 X10*3/uL (0.1-1.2); Monocytes Percent Auto 8.7 % (2-11); Neutrophils Absolute Auto 2.1 x10*3/uL (2.0-8.3); Neutrophils Percent Auto 39.8 % (45-73); Platelet Count 223 X10*3/uL (160-400); Red Blood Count 5.05 X10*6/uL (4.20-5.50); Red Cell Distribution Width 12.9 % (11.0-16.0); White Blood Count 5.3 X10*3/uL (4.8-10.8)
[2024-02-07 10:40] LABS: Rheumatoid Factor < 13.0 IU/mL (<15.0)
[2024-02-07 11:08] LABS: Folate 10.7 ng/mL (> or = 4.0); Vitamin B12 315 pg/mL (200-900)
[2024-02-07 11:11] LABS: Erythrocyte Sedimentation Rate 1 MM/HR (0-20)
[2024-02-07 11:34] LABS: Alanine Aminotransferase 18 U/L (0-31); Albumin Level 4.4 g/dL (3.5-5.0); Alkaline Phosphatase 66 U/L (39-117); Anion Gap 13 (12-20); Aspartate Amino Transferase 30 U/L (5-31); Bilirubin Total 0.8 mg/dL (0.0-1.0); Blood Urea Nitrogen 16 mg/dL (9-16); C Reactive Protein < 0.10 mg/dL (< or = 0.50); Calcium 9.6 mg/dL (8.4-10.2); Carbon Dioxide 26 mmol/L (22-29); Chloride 108 mmol/L (96-108); Cholesterol 222 mg/dL (<200); Estimated Glomerular Filt Rate > 60; Glucose Fasting 94 mg/dL (60-99); HDL Cholesterol 72 mg/dL (>40); LDL Cholesterol Calculated 133 mg/dL (<100); Potassium 4.1 mmol/L (3.3-5.1); Sodium 143 mmol/L (135-145); Triglycerides 85 mg/dL (<150)
[2024-02-07 12:02] LABS: TSH reflex Free T4 3.28 uIU/mL (0.32-4.0); Vitamin D 25-OH Total 45.5 ng/mL (>30)
[2024-02-08 12:38] LABS: Lyme Abs Screen <0.90 index
[2024-02-10 14:49] LABS: Anti Nuclear Antibody Screen POSITIVE (NEGATIVE)
[2024-02-10 21:13] LABS: CK-BB None Detected (None Detected); CK-MB 0 % (<5); CK-MM 100 % (95-100); Creatine Kinase,Total,Serum 70 U/L (29-143)
== END 2024-02-07 07:16 | disposition home or self-care (01) ==
LOC: HO.HMGCLDS 07:15
PROVIDERS: PCP Internal Medicine; Visit Provider Internal Medicine
DX: Z00.00 Encounter for general adult medical examination without abnormal findings (principal); M25.50 Pain in unspecified joint; D64.9 Anemia, unspecified; E78.00 Pure hypercholesterolemia, unspecified; M79.7 Fibromyalgia; R30.0 Dysuria; E53.9 Vitamin B deficiency, unspecified; E55.9 Vitamin D deficiency, unspecified
CPT/HCPCS: 36415; 80053; 80061; 81003; 82306; 82552; 82607; 82746; 84443; 85025; 85652; 86038; 86039; 86140; 86431; 86617; 86618

== ENCOUNTER 2024-02-23 10:01 | Outpatient (AMB) | payer OTHER, SELFPAY ==
[2024-02-23 10:03] VITALS: BP 180/110; PULSE 84; O2SAT 99; BMI 21.6
--- NOTE | 2024-02-23 10:03 | A.OFFPC_ITS ---
Vital Signs 3 02/23/24 10:03 02/23/24 10:13 Height 5 ft 3 in Weight 122 lb BMI 21.6 BP 180/110 H 158/100 H Blood Pressure Location Rt brachial Lt brachial Position Sitting Sitting Pulse 84 Pulse Source Pulse Oximeter Pulse Oximetry (%) 99 Oxygen Delivery Method Room Air Intake Visit Reasons: LT ear gets hard and swollen Food Processor Required: No Accompanied by: Self / Same As Patient Allergies bee pollen [BEE STINGS] Allergy (Severe, Verified 02/23/24 10:14) SWELLING cortisone [CORTISONE] Allergy (Intermediate, Verified 02/23/24 10:14) EUPHORIC REACTION latex [LATEX] Allergy (Intermediate, Verified 02/23/24 10:14) RASH Fish Containing Products Allergy (Unknown, Verified 02/23/24 10:14) SENSITIVE - RED MOSQUITOS Allergy (Intermediate, Uncoded 02/23/24 10:14) SWELLING Medication List - Last Reconciled 02/23/24 by Hiram Lazo PA-C clindamycin phosphate 1% 1 appl topical BID 30 days clindamycin-benzoyl peroxide 1-5 % 1 appl topical DAILY 30 days dapsone 5% topical hydrocodone-acetaminophen 5-325 mg 1 tab PO Q8H PRN 7 days methocarbamol 750 mg PO Q8H PRN mupirocin 2% 1 appl topical TID naproxen 500 mg PO BID PRN 30 days nicotine 1 patch transdermal Q24H 28 days silver sulfadiazine 1% (Silvadene) 1 appl topical BID PRN 5 days tretinoin 0.05% 1 appl topical BEDTIME Tobacco use date assessed: 08/26/23 Dental Screening Dental Screen Date: 08/26/23 HPI LT ear gets hard and swollen 2 HPI0 Details Janette is a 53-year-old female here today for problem visit. She reports her left ear feels congested and her left side of neck is painful/swollen sensation when she swallows. She reports these symptoms have been going on for the last month.. She has not used any rjya-lqz-dpjolno medication. She reports trying to use steam Of note patient has a smoker. [facility] Medical History Cervical disc disease Right leg pain Emphysema lung Smoker Somatoform pain disorder Fibromyalgia Lyme disease Surgical History History of prior ablation treatment History of tooth extraction Family History Father Medical history unknown Mother Hypertension CVD (cardiovascular disease) Social History Housing: House Alcohol intake: never Patient Tobacco Use Status: Current everyday Tobacco user Tobacco use type: Cigarette Cigarettes Per Day: 12 e-Cigarette/Vaping Use: Former Use Second Hand Smoke Exposure: No service: No Current occupational status: employed and disabled Current occupational exposures/hazards: No Cognitive needs: Yes Hearing needs: No Vision needs: No Questionnaire Thrive Questionnaire Date Thrive assessed: 08/26/23 LOUISE-7 AMB Questionnaire LOUISE-7 Date LOUISE - 7 assessed: 08/26/23 Source: Developed by Drs. Forest Whiting, Maria Crowe, Jose Carlos Rinaldi and colleagues, with an educational inna from [employer]. Review of Systems Const Denies headache(s) Eyes Denies loss of vision ENT Denies vertigo, Denies dizziness, Denies headache(s) and Denies sore throat Card Denies chest pain, Denies leg edema and Denies lightheadedness Resp Denies cough, Denies hemoptysis and Denies wheezing GI Denies abdominal pain, Denies melena, Denies constipation, Denies diarrhea and Denies vomiting Denies urinary frequency, Denies dysuria and Denies urinary urgency Musc Denies arthralgias, Denies joint swelling, Denies numbness and Denies tingling Neuro Denies Abnormal speech present, Denies behavioral changes, Denies vertigo, Denies dizziness, Denies headache(s), Denies loss of vision, Denies memory loss, Denies numbness and Denies tingling Psych Denies anxiety, Denies behavioral changes, Denies depression, Denies memory loss and Denies panic attacks Sina/Lymph Denies easy bleeding and Denies easy bruising Aller/Immun Denies wheezing Physical exam (Primary Care) Vital Signs: Last Vital Signs Pulse 84 02/23/24 10:03 BP 158/100 H 02/23/24 10:13 Pulse Ox 99 02/23/24 10:03 Oxygen Delivery Method Room Air 02/23/24 10:03 BMI result Body Mass Index 21.6 Tobacco/Smoking Status: Tobacco use Status Tobacco use date assessed 08/26/23 02/23/24 10:04 Patient Tobacco Use Status Current everyday Tobacco 02/23/24 10:04 Tobacco use type Cigarette 02/23/24 10:04 e-Cigarette/Vaping Use Former Use 02/23/24 10:04 Thrive Assessment: Date of Thrive Assessment Date Thrive assessed 08/26/23 02/23/24 10:04 Const General: healthy appearing, no acute distress, alert and awake Nutritional Appearance: well nourished Orientation/consciousness: oriented to person, oriented to place and oriented to time HENMT Ears: TM's normal bilaterally General nose exam: Normal nasal mucous membranes and turbinates present Eyes Conjunctivae: conjunctivae normal Sclerae: sclerae normal Pupils: Equal, round and reactive pupils present Neck Neck: Yes no lymphadenopathy and Yes no JVD Thyroid: Thyroid normal Carotids: no bruits Neck images: 2 1. PALPABLE SOFT TENDER MASS NOTED. ? LYMPHNODE VS MASS Resp Effort & Inspection: normal respiratory effort and not tachypneic Auscultation: no crackles, no rales, no rhonchi and no wheezes Cardio Rate: regular rate Rhythm: regular rhythm Heart sounds: no murmurs and normal S1 and S2 GI Palpation (GI): Soft to palpation, nontender, no hepatomegaly and no splenomegaly Auscultation: normal bowel sounds Skin General skin exam: no rashes or lesions noted and dry skin Neuro General: oriented to person, oriented to place and oriented to time Cranial nerves: Yes Equal, round and reactive pupils present Speech: No Abnormal speech present Gait exam (Neuro): Normal gait present Motor exam (neuro): no tremor noted Extrem Right upper extremity: full ROM Left upper extremity: full ROM Right lower extremity: full ROM; no edema Left lower extremity: full ROM; no edema Psych Mental Status: mental status grossly normal Speech and movement: Normal speech and movement present Affect: normal affect Attitude: cooperative Thought process: Normal thought process present Coding Level of Care Code Est Pt Level 4 (92286) Diagnoses Disorder of left eustachian tube H69.92 Congestion of left ear H93.8X2 Mass of left side of neck R22.1 Assessment & Plan Assessment & Plan (1) Disorder of left eustachian tube: Code(s): H69.92 - Unspecified Eustachian tube disorder, left ear Category: Medical Plan: Patient's signs and symptoms concerning for a left Eustachian tube dysfunction. Advised on nasal saline and allergy medication. Will supply patient with an antibiotic for possible inner ear infection as well. She will be seeing by ENT though not until spring (2) Congestion of left ear: Code(s): H93.8X2 - Other specified disorders of left ear Category: Medical Plan: As above (3) Mass of left side of neck: Code(s): R22.1 - Localized swelling, mass and lump, neck Category: Medical Plan: Patient does have a small palpable lump in the left side of her neck just below her left ear. Likely a lymph node though out of abundance of caution will try for CT neck to evaluate for mass due to patient's smoking history. Orders: Orders 2 CT soft tissue neck w IV con Today R22.1 - Localized swelling, mass and lump, neck Medications: New 2 amoxicillin 500 mg PO Q8H 21 caps 0RF 7 days H93.8X2 - Other specified disorders of left ear
[2024-02-23 10:13] VITALS: BP 158/100
== END 2024-02-23 10:34 | disposition home or self-care (01) ==
LOC: HO.HMCH 10:02
PROVIDERS: PCP Internal Medicine; Visit Provider Physician Assistant
DX: H69.92 Unspecified Eustachian tube disorder, left ear (principal); H93.8X2 Other specified disorders of left ear; R22.1 Localized swelling, mass and lump, neck

== ENCOUNTER → 2024-02-23 10:01 | Outpatient (BNVA) | payer OTHER, SELFPAY | PROVIDERS: PCP Internal Medicine; Visit Provider Physician Assistant | DX: H69.92 Unspecified Eustachian tube disorder, left ear (principal); H93.8X2 Other specified disorders of left ear; R22.1 Localized swelling, mass and lump, neck | CPT/HCPCS: 99212 ==

== ENCOUNTER 2024-03-01 08:58 | Outpatient (AMB) | payer OTHER, SELFPAY ==
[2024-03-01 09:01] VITALS: BP 124/82; PULSE 76; O2SAT 98; BMI 21.3
--- NOTE | 2024-03-01 09:01 | A.OFFPC_ITS ---
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 Accompanied by: Self / Same As Patient Allergies bee pollen [BEE STINGS] Allergy (Severe, Verified 03/01/24 09:32) SWELLING cortisone [CORTISONE] Allergy (Intermediate, Verified 03/01/24 09:32) EUPHORIC REACTION latex [LATEX] Allergy (Intermediate, Verified 03/01/24 09:32) RASH Fish Containing Products Allergy (Unknown, Verified 03/01/24 09:32) SENSITIVE - RED MOSQUITOS Allergy (Intermediate, Uncoded 03/01/24 09:32) SWELLING Medication List - Last Reconciled 03/01/24 by Kory Leon MD amoxicillin 500 mg PO Q8H 7 days clindamycin phosphate 1% 1 appl topical BID 30 days clindamycin-benzoyl peroxide 1-5 % 1 appl topical DAILY 30 days dapsone 5% topical hydrocodone-acetaminophen 5-325 mg 1 tab PO Q8H PRN 7 days methocarbamol 750 mg PO Q8H PRN mupirocin 2% 1 appl topical TID naproxen 500 mg PO BID PRN 30 days nicotine 1 patch transdermal Q24H 28 days silver sulfadiazine 1% (Silvadene) 1 appl topical BID PRN 5 days tretinoin 0.05% 1 appl topical BEDTIME Tobacco use date assessed: 03/01/24 Dental Screening Dental Screen Date: 03/01/24 Did you have a dental visit in the last 12 months?: No Did you have a dental problem in the last 6 months where you did not have access to dental care?: No Was dental information given to patient?: No HPI 6mth f/u HPI Details Patient comes in today for her follow up visit She is scheduled today for CT of her neck to further assess the left neck mass/swelling that she was seen for last week States that she is finishing up her Abx (Amoxicillin) and thinks that the Abx helped somewhat She continues to struggle with her chronic neck issues/tightness that affects her swallowing so she is still getting by with modified feedings as the neck tightness affect her swallowing She has been referred to ENT for further evaluation of her throat and neck issues but could not get an appointment with ENT (in [place]) until July 2024 She was also sent for some labs last week for further evaluation and she is interested as to how her labs came out Adds that she sustained an injury to her left wrist (volar aspect) about a month ago now when the cat litter box she was taking out slipped and scraped against her wrist, causing the injury States that she has been trying to clean the wound regularly and keeping it clean as best as she can; has also been applying OTC Mupirocin ointment over the wound regularly and feels that it has improved although it has not healed up yet - patient feels that the healing seems to be slow She also thinks that she may have broken her left index finger when she bent it awkwardly a few months ago She did not have it checked when she got hurt and thinks that it may have mostly healed up now but states that it is still painful and it is pushed sideways; she seem to be able to bend the finger completely at present She denies any dizziness lately; still has on and off headaches Denies any chest pains, no increased SOB (+) occasional nausea that she thinks is mostly related to her stomach issues but no vomiting noted No abdominal pain although she feels bloated at times Still has trouble with bowel movements due to her diet and chronic issues with prolapse but states that she gets by and goes regularly Have again offered to refer her to rheumatology, especially with her current lab results, but she states that other than Dr. Hubbard and a nurse practitioner who saw her here at [facility] a few years ago, she will not see any other rheumatologists as she feels that the few she has seen over the years did not bother to even take her seriously [facility] Medical History Cervical disc disease Right leg pain Emphysema lung Smoker Somatoform pain disorder Fibromyalgia Lyme disease Surgical History History of prior ablation treatment History of tooth extraction Family History Father Medical history unknown Mother Hypertension CVD (cardiovascular disease) Social History Housing: House Alcohol intake: never Patient Tobacco Use Status: Current everyday Tobacco user Tobacco use type: Cigarette Cigarettes Per Day: 12 e-Cigarette/Vaping Use: Former Use Second Hand Smoke Exposure: No service: No Current occupational status: employed and disabled Current occupational exposures/hazards: No Cognitive needs: Yes Hearing needs: No Vision needs: No Questionnaire PHQ-9 Over the last 2 weeks, how often have you been bothered by any of the following problems? 1. Little interest or pleasure in doing things: not at all 2. Feeling down, depressed, or hopeless: not at all 3. Trouble falling or staying asleep, or sleeping too much: not at all 4. Feeling tired or having little energy: not at all 5. Poor appetite or overeating: not at all 6. Feeling bad about yourself - or that you are a failure or have let yourself or your family down: not at all 7. Trouble concentrating on things, such as reading the newspaper or watching television: not at all 8. Moving or speaking so slowly that other people could have noticed. Or the opposite - being so fidgety or restless that you have been moving around a lot more than usual: not at all 9. Thoughts that you would be better off or of hurting yourself in some way: not at all Total score: 0 Depression Screening Interpretation: Negative Depression Screening Done: Yes 66628 - PHQ-9 Billing: Yes Source: Developed by Drs. Forest Whiting, Maria Crowe, Jose Carlos Rinaldi and colleagues, with an educational inna from [employer]. Thrive Questionnaire Date Thrive assessed: 03/01/24 I am a: Patient What is your living situation today?: I have a steady place to live Within the past 12 months, did the food you bought not last and you didn't have the money to get more?: Never true Within the past 12 months, did you worry whether your food would run out before you got money to buy more?: Never true Do you have trouble paying for medicines?: No Do you have trouble getting transportation to medical appointments?: No Do you have trouble paying your heating and electricity bill?: No Do you have trouble taking care of your child, family member or friend?: No Do you have trouble with day-to-day activities such as bathing, preparing meals, shopping, managing finances, etc.?: No Are you currently unemployed and looking for a job?: No Are you interested in more education?: No Please select the resources that you would like help with: None Currently or been in a relationship where the following occur: No concerns reported THRIVE Score: 0 AUDIT C Alcohol Use Questionnaire (AUDIT-C) 1. How often do you have a drink containing alcohol?: Never 3. How often do you have six or more drinks on one occasion?: Never Total Score: 0 Score Reviewed/Action Taken: Yes LOUISE-7 AMB Questionnaire LOUISE-7 Date LOUISE - 7 assessed: 03/01/24 Feeling nervous, anxious, or on edge: 0 = Not at all Not being able to stop or control worryin = Not at all Worrying too much about different things: 0 = Not at all Trouble relaxin = Not at all Being so restless that it is hard to sit still: 0 = Not at all Becoming easily annoyed or irritable: 0 = Not at all Feeling afraid as if something awful might happen: 0 = Not at all Total LOUISE-7 score (0-4 normal; 5-9 mild; 10-14 moderate; 15-21 severe): 0 Source: Developed by Drs. Forest Whiting, Maria Crowe, Jose Carlos Rinaldi and colleagues, with an educational inna from [employer]. Review of Systems Const Denies chills, Reports fatigue (chronic), Denies fever(s) and Reports headache(s) (on and off) ENT Details: feels some lumps on the sides of her neck/throat Reports dysphagia (mostly due to recurrent sensation of tightness in her throat), Denies dizziness, Denies otalgia (but ears feel full often), Reports headache(s) (on and off), Reports neck mass (feels a recurrent sensation of tightness on the left anterior neck area), Reports neck pain (chronic, especially over the left side), Denies odynophagia and Denies sore throat Card Denies chest pain, Denies palpitations and Reports dyspnea on exertion (mild, chronic) Resp Denies chest congestion (but chest feels tight at times), Reports cough (on and off, non-productive), Denies pain on inspiration and Reports dyspnea on exertion (mild, chronic) GI Denies abdominal pain, Denies constipation, Reports dysphagia (mostly due to recurrent sensation of tightness in her throat), Denies heartburn, Denies diarrhea, Denies nausea, Denies odynophagia and Denies vomiting Denies difficulty voiding, Denies nocturia, Denies dysuria and Denies urinary urgency Musc Details: (+) pain of the left index finger, especially with forced adduction and abduction; no edema of the finger noted Reports back pain, Reports myalgias (diffuse) and Reports neck pain (chronic, especially over the left side) Skin/Breast Details: (+) healing wound/superficial ulcer on the volar aspect of the left wrist Denies rash Neuro Denies dizziness and Reports headache(s) (on and off) Psych Denies anxiety and Denies depression Endo Reports fatigue (chronic) and Denies palpitations Sina/Lymph Denies easy bruising Physical exam (Primary Care) Vital Signs: Last Vital Signs Pulse 76 03/01/24 09:01 BP 124/82 03/01/24 09:01 Pulse Ox 98 03/01/24 09:01 Oxygen Delivery Method Room Air 03/01/24 09:01 BMI result Body Mass Index 21.3 Tobacco/Smoking Status: Tobacco use Status Tobacco use date assessed 03/01/24 03/01/24 09:09 Patient Tobacco Use Status Current everyday Tobacco 03/01/24 09:09 Tobacco use type Cigarette 03/01/24 09:09 e-Cigarette/Vaping Use Former Use 03/01/24 09:09 PHQ-9: PHQ-9 Score PHQ-9: Total score 0 03/01/24 09:29 Depression Screening Interpretation: Negative Thrive Assessment: Date of Thrive Assessment Date Thrive assessed 03/01/24 03/01/24 09:09 Currently or been in a relationship where the following occur: No concerns reported Const General: no acute distress, alert and tired appearing HENMT Ears: TM's normal bilaterally and EAC's normal Face and sinus: Yes sinuses nontender Throat: Yes posterior oropharynx normal and Yes tonsils normal (no TP congestion) Neck Other: (+) palpable, non-tender lymph nodes over the anterolateral aspect of her neck bilaterally; (+) tenderness over the muscles around the neck, especially over the posterior and left posterolateral aspect of the neck Neck: Yes no lymphadenopathy and Yes supple Thyroid: Thyroid normal Resp Auscultation: no rales, rhonchi (occasional) throughout, no wheezes and diminished lung sounds (slightly, bilaterally) Cardio Rate: regular rate Rhythm: regular rhythm Heart sounds: no murmurs GI Palpation (GI): Soft to palpation and nontender Auscultation: normal bowel sounds General: Yes no CVA tenderness Back/Spine/Pelvis Back: no CVA tenderness Cervical Spine: cervical muscular tenderness and Cervical spine tenderness Thoracic/Lumbar Spine: lumbar spinal tenderness Skin Other: (+) superficial ulcer noted on the volar aspect of the left wrist; no active drainage noted from the ulcer Rashes: no rashes Extrem General: Yes no clubbing, cyanosis or edema Left upper extremity: hand Details: tenderness Location: of the 2nd digit Location: involving the entire digit and no swelling Office Procedures Flu Questionnaire Does the patient have a severe egg allergy?: No Immunizations Fluarix Triv [id number] (PF) 45 mcg (15 mcg x 3)/0.5 mL IM syringe Performing Provider: Kory Leon MD Performing Location[facility] Documented (not given) by: IMANI Duran on 03/01/24 09:35 Reason Not Given: Patient Refused Results Reviewed Results Reviewed: Laboratory Tests 03/27/20 02/07/24 02/07/24 08:43 07:20 07:25 WBC 5.3 Hgb 17.2 H 15.8 Hct 51.7 H 47.2 H Plt Count 223 ESR 1 Sodium 143 Potassium 4.1 Creatinine 0.77 Estimated GFR > 60 Fasting Glucose 94 Calcium 9.6 AST 30 ALT 18 Alkaline Phosphatase 66 Total Creatine Kinase C-Reactive Protein < 0.10 Total Protein 7.0 Albumin 4.4 Triglycerides 85 Cholesterol 222 H LDL Cholesterol, Calc 133 H HDL Cholesterol 72 Vitamin B12 315 25-OH Vitamin D Total 45.5 TSH 3.28 Ur Specific [place] 1.015 Urine Protein Negative Urine Glucose (UA) Negative Urine Blood Negative Urine Nitrite Negative Ur Leukocyte Esterase Negative Rheumatoid Factor < 13.0 HAROLDO Screen POSITIVE A HAROLDO Titer 1:80 H [place] Screen IgG & IgM <0.90 02/07/24 09:20 WBC Hgb Hct Plt Count ESR Sodium Potassium Creatinine Estimated GFR Fasting Glucose Calcium AST ALT Alkaline Phosphatase Total Creatine Kinase 70 C-Reactive Protein Total Protein Albumin Triglycerides Cholesterol LDL Cholesterol, Calc HDL Cholesterol Vitamin B12 25-OH Vitamin D Total TSH Ur Specific [place] Urine Protein Urine Glucose (UA) Urine Blood Urine Nitrite Ur Leukocyte Esterase Rheumatoid Factor HAROLDO Screen HAROLDO Titer Lyme Screen IgG & IgM Coding Level of Care Code Est Pt Level 4 (66127) Diagnoses Mass of left side of neck R22.1 Pain in finger of left hand M79.645 Positive HAROLDO (antinuclear antibody) R76.8 Centrilobular emphysema J43.2 Emphysema type: centrilobular Cervical disc disease M50.90 Dysphagia, unspecified type R13.10 Dysphagia type: unspecified Fibromyalgia M79.7 Open wound of left wrist, sequela S61.502S Encounter type: sequela Smoker F17.200 Additional Codes PHQ-9 - 56278 - PHQ-9 Billing: Yes ([id number]) Assessment & Plan Assessment & Plan (1) Mass of left side of neck: Code(s): R22.1 - Localized swelling, mass and lump, neck Category: Medical Plan: She is scheduled for her neck CT for further evaluation later today Have advised patient that we will check back with her as soon as the results of her CT are available for review, especially if there are any pertinent or significant findings on her CT Have advised patient that most of her labs, other than a low level positivity of her HAROLDO, have all come back normal (2) Pain in finger of left hand: Code(s): M79.645 - Pain in left finger(s) Category: Medical Plan: Will send her for x-rays of her left index finger for further evaluation (3) Positive HRAOLDO (antinuclear antibody): Code(s): R76.8 - Other specified abnormal immunological findings in serum Category: Medical Plan: Have advised patient that her HAROLDO came back positive on her recent labs but it is low level (1:80 or less) so this does not automatically mean that she has lupus or some other immune-mediated disease Will send her for some additional labs for further evaluation Have again offered to refer her to rheumatology for consultation but she has indicated that other than Dr. Hubbard and a nurse practitioner who saw her here at [facility] a few years ago, she will not see any other rheumatologists as she feels that the few she has seen over the years did not bother to even take her seriously (4) Emphysema lung: Comment: Emphysematous findings are noted in her chest CT report done at [facility] in 2019. Chest x-ray done in April 2020 also mentioned (+) hyperinflation of the lungs and with her smoking history, advised that she most likely has at least early COPD Code(s): J43.9 - Emphysema, unspecified Category: Medical Qualifiers: Emphysema type: centrilobular Qualified Code(s): J43.2 - Centrilobular emphysema Plan: Patient's chest x-rays back in August 2022 revealed (+) some blunting of the posterior sulcus and costophrenic angles bilaterally, that appear to be related to hyperinflation but her chest x-ray was otherwise normal She did have emphysematous findings are noted in her chest CT report done at [facility] in 2019 PFTs done in March 2022 were inconclusive as patient declined the bronchodilators for the test; preliminary results show some evidence of mild obstructive airway disease (5) Cervical disc disease: Code(s): M50.90 - Cervical disc disorder, unspecified, unspecified cervical region Category: Medical Plan: Patient has been to pain management (with both [facility] and [facility]) and has received injection Tx in the past but could not tolerate the injected medication(s), including a trial of Botox, due to side effects and remains NOT interested in going back to pain management States that she has mostly been getting by with a combination of neck exercises, massage therapy and her Rxs that include Naproxen 500 mg BID PRN and Vicodin 5- 325 mg PRN occasionally (6) Dysphagia: Code(s): R13.10 - Dysphagia, unspecified Category: Medical Qualifiers: Dysphagia type: unspecified Qualified Code(s): R13.10 - Dysphagia, unspecified Plan: Barium swallow done at [facility] back in 2018 came out normal She has declined offers to send her back for repeat studies since She was referred previously to ENT for evaluation and recommendations and she is now scheduled to be seen by ENT in [place] sometime in July 2024 (7) Fibromyalgia: Code(s): M79.7 - Fibromyalgia Category: Medical Plan: Continue Methocarbamol 750 mg Q 8 hours PRN Patient is again encouraged on regular exercise and physical activity to help manage her fibromyalgia symptoms better (8) Open wound of left wrist: Code(s): S61.502A - Unspecified open wound of left wrist, initial encounter Category: Medical Qualifiers: Encounter type: sequela Qualified Code(s): S61.502S - Unspecified open wound of left wrist, sequela Plan: Patient states that the wound has been present for about a month now and feels that it is slowly improving and would like to continue with daily wound care for now States that she does apply OTC Mupirocin ointment to the wound 2 to 3 times a day and it is helping Have advised her to call if the wound still has not healed up completely over the next couple of weeks or if it looks like it is getting worse at any time (9) Smoker: Code(s): F17.200 - Nicotine dependence, unspecified, uncomplicated Category: Social Hx Plan: Patient is counseled again on smoking cessation She has tried quitting unsuccessfully in the past with nicotine patches Plan Follow up in 6 months Orders: Orders Influenza [id number] Immunization Today Z23 - Encounter for immunization Anti DNA DS Antibody Today R76.8 - Other specified abnormal immunological findings in serum Cyclic Citrullinated Peptide Today M25.50 - Pain in unspecified joint XR hand LT min 3V Today M79.645 - Pain in left finger(s)
== END 2024-03-01 09:30 | disposition home or self-care (01) ==
PROVIDERS: PCP Internal Medicine; Visit Provider Internal Medicine
DX: R22.1 Localized swelling, mass and lump, neck (principal); M79.645 Pain in left finger(s); R76.8 Other specified abnormal immunological findings in serum; J43.2 Centrilobular emphysema; M50.90 Cervical disc disorder, unspecified, unspecified cervical region; R13.10 Dysphagia, unspecified; M79.7 Fibromyalgia; S61.5 Open wound of wrist; F17.200 Nicotine dependence, unspecified, uncomplicated; Z23 Encounter for immunization

== ENCOUNTER 2024-03-01 10:45 | Outpatient (REF) | payer OTHER, SELFPAY ==
[2024-03-03 14:33] LABS: Anti DNA DS Antibody 39 IU/mL
[2024-03-03 19:58] LABS: Cyclic Citrullinated Peptide <16 UNITS
== END 2024-03-01 10:46 | disposition home or self-care (01) ==
LOC: HO.HMGCX 10:45
PROVIDERS: PCP Internal Medicine; Visit Provider Internal Medicine
DX: M79.645 Pain in left finger(s) (principal); M25.50 Pain in unspecified joint; R76.8 Other specified abnormal immunological findings in serum
CPT/HCPCS: 36415; 73130; 86200; 86225

== ENCOUNTER 2024-03-01 14:20 | Outpatient (REF) | payer OTHER, SELFPAY ==
--- NOTE | ~2024-03-01 | CT_ITS ---
EXAMINATION: CT SOFT TISSUE NECK WITH CONTRAST CLINICAL INFORMATION: Localized swelling/mass/lump, neck. Left upper neck. COMPARISON: None available. TECHNIQUE: Without and Following the intravenous administration of 60 mL of Omnipaque 350 intravenous contrast without reported immediate complications, helical imaging was performed in the axial plane with generation of coronal and sagittal reformatted images. This CT examination was performed using dose optimization techniques as appropriate, variously including the following: *Automated exposure control *Adjustment of mA and/or kV according to patient size (this includes techniques or standardized protocols for targeted exams where dose is matched to indication/reason for exam; i.e. extremities or head) *Use of iterative reconstruction technique DLP: 282 mGy-cm FINDINGS: Skin marker placed in the region of concern. No gross mass or fluid collection beneath the skin at the skin marker. Skull base, nasopharynx, retropharynx, oropharynx, hypopharynx and larynx demonstrated no gross masses or fluid collections. Punctate calcifications in the palatine tonsils. [employer] Specialist spaces, parapharyngeal and carotid compartments demonstrated no gross masses or fluid collections. Salivary glands demonstrated no calcifications or enhancing lesion. No gross lymphadenopathy. The vessels are patent. Dominant right internal jugular vein. High riding right internal jugular bulb. Normal-sized thyroid gland without dominant nodules. Calcified plaques in the thoracic aortic arch. Multilevel cervical spondylosis, C4 C7 resulting in reverse curvature apex at C5 and central spinal canal stenosis at C5-6, C6-7 and to a lesser extent C4-5 levels. Tympanic cavities and mastoid cells are aerated. Polypoid mucosal thickening, left maxillary sinus. Apical lung scarring, bilaterally. Paraseptal emphysematous changes, upper lobes. CT/CT soft tissue neck w IV con IMPRESSION: Mass or fluid collection in the region of concern. Multilevel cervical spondylosis C4 C7 resulting central spinal canal stenosis at C5-6 and C6-7. Tonsilliths, palatine tonsils, bilaterally. Electronically signed by: Angel Lowe MD 03/02/2024 08:37 AM EST
[2024-03-01] MEDS: iohexoL 350 MG/ML 100 ML INFUS..BTL IV (15:22)
== END 2024-03-01 14:21 | disposition home or self-care (01) ==
LOC: HO.CT 14:20
PROVIDERS: PCP Internal Medicine; Visit Provider Physician Assistant
DX: R22.1 Localized swelling, mass and lump, neck (principal); M79.645 Pain in left finger(s); R76.8 Other specified abnormal immunological findings in serum; J43.2 Centrilobular emphysema; M50.90 Cervical disc disorder, unspecified, unspecified cervical region; R13.10 Dysphagia, unspecified; M79.7 Fibromyalgia
CPT/HCPCS: 70491; 90471; 96127; 99212; Q9967

== ENCOUNTER → 2024-03-01 14:22 | Outpatient (BNV) | payer OTHER, SELFPAY | PROVIDERS: PCP Internal Medicine; Visit Provider Radiology Diagnostic Radiology | DX: J03.90 Acute tonsillitis, unspecified (principal); M48.02 Spinal stenosis, cervical region; M47.892 Other spondylosis, cervical region | CPT/HCPCS: 70491 ==

== ENCOUNTER 2024-12-29 10:31 | Outpatient (AMB) | payer OTHER, SELFPAY ==
[2024-12-29 11:13] VITALS: BP 132/80; PULSE 80; O2SAT 98; BMI 20.4
--- NOTE | 2024-12-29 11:13 | A.OFFPC_ITS ---
Vital Signs 12/29/24 11:13 Height 5 ft 3 in Weight 115 lb 4 oz BMI 20.4 BP 132/80 Blood Pressure Location Lt brachial Position Sitting Pulse 80 Pulse Source Pulse Oximeter Pulse Oximetry (%) 98 Oxygen Delivery Method Room Air Intake Visit Reasons: follow up Gunner'S Mate M Required: No Accompanied by: Self / Same As Patient Allergies bee pollen (BEE STINGS) Allergy (Severe, Verified 12/29/24 11:21) SWELLING cortisone (CORTISONE) Allergy (Intermediate, Verified 12/29/24 11:21) EUPHORIC REACTION latex (LATEX) Allergy (Intermediate, Verified 12/29/24 11:21) RASH Fish Containing Products Allergy (Unknown, Verified 12/29/24 11:21) SENSITIVE - RED MOSQUITOS Allergy (Intermediate, Uncoded 12/29/24 11:21) SWELLING Medication List - Last Reconciled 12/29/24 by Kory Leon MD clindamycin phosphate 1% 1 appl topical BID 30 days clindamycin-benzoyl peroxide 1-5 % 1 appl topical DAILY 30 days hydrocodone-acetaminophen 5-325 mg 1 tab PO Q8H PRN 7 days hydroxychloroquine (Plaquenil) 200 mg PO BID mupirocin 2% 1 appl topical TID naproxen 500 mg PO BID PRN 30 days tizanidine 4 mg PO Q8H PRN 30 days Tobacco use date assessed: 12/29/24 Dental Screening Dental Screen Date: 12/29/24 Did you have a dental visit in the last 12 months?: No Did you have a dental problem in the last 6 months where you did not have access to dental care?: No Was dental information given to patient?: Patient has dentist HPI follow up HPI Details Patient comes in today for her follow up visit States that she still has her previous symptoms of a pressure-like sensation around her neck and especially over the left side, wherein it feels like there is something in her neck/throat area Relates that ENT (Dr. Vides) drained out what seems to be some pus from the left side of her throat back when she was seen by ENT in July 2024 She recalls that her neck/throat felt a lot better after that procedure but her symptoms have gradually returned since States that she was just seen by ENT one time and she does not have any follow up appointment scheduled yet so far She was also seen by Dr[facility] October [facility] for her (+) HAROLDO test result on her labs She was advised that although her HAROLDO was positive, she did not seem to have any exam findings at the time to suggest the presence of an inflammatory joint disorder but she was started empirically on hydroxychloroquine and sent for some additional labs for further evaluation Patient states that she has not yet gotten around to getting the labs done but thinks that the hydroxychloroquine is helping as her overall symptoms of fatigue and diffuse pain seem to have improved somewhat since she was started on the Rx States that she otherwise feels okay She denies any increased headaches or dizziness lately Denies any exertional chest pains or increased SOB No nausea/vomiting, no abdominal pain No change in bowel habits noted [facility] Medical History Cervical disc disease Right leg pain Emphysema lung Smoker Somatoform pain disorder Fibromyalgia Lyme disease Surgical History History of prior ablation treatment History of tooth extraction Family History Father Medical history unknown Mother Hypertension CVD (cardiovascular disease) Social History Housing: House Alcohol intake: never Patient Tobacco Use Status: Current everyday Tobacco user Tobacco use type: Cigarette Cigarettes Per Day: 12 e-Cigarette/Vaping Use: Former Use Second Hand Smoke Exposure: No service: No Current occupational status: employed and disabled Current occupational exposures/hazards: No Cognitive needs: Yes Hearing needs: No Vision needs: No Questionnaire PHQ-9 Over the last 2 weeks, how often have you been bothered by any of the following problems? 1. Little interest or pleasure in doing things: not at all 2. Feeling down, depressed, or hopeless: not at all 3. Trouble falling or staying asleep, or sleeping too much: not at all 4. Feeling tired or having little energy: not at all 5. Poor appetite or overeating: not at all 6. Feeling bad about yourself - or that you are a failure or have let yourself or your family down: not at all 7. Trouble concentrating on things, such as reading the newspaper or watching television: not at all 8. Moving or speaking so slowly that other people could have noticed. Or the opposite - being so fidgety or restless that you have been moving around a lot more than usual: not at all 9. Thoughts that you would be better off or of hurting yourself in some way: not at all Total score: 0 Depression Screening Interpretation: Negative Depression Screening Done: Yes 31445 - PHQ-9 Billing: Yes Source: Developed by Drs. Forest Whiting, Maria Crowe, Jose Carlos Rinaldi and colleagues, with an educational inna from [employer]. Thrive Questionnaire Date Thrive assessed: 12/29/24 I am a: Patient What is your living situation today?: I have a steady place to live Within the past 12 months, did the food you bought not last and you didn't have the money to get more?: Never true Within the past 12 months, did you worry whether your food would run out before you got money to buy more?: Never true Do you have trouble paying for medicines?: I choose not to answer this question Do you have trouble getting transportation to medical appointments?: I choose not to answer this question Do you have trouble paying your heating and electricity bill?: I choose not to answer this question Do you have trouble taking care of your child, family member or friend?: I choose not to answer this question Do you have trouble with day-to-day activities such as bathing, preparing meals, shopping, managing finances, etc.?: I choose not to answer this question Are you currently unemployed and looking for a job?: I choose not to answer this question Are you interested in more education?: I choose not to answer this question Please select the resources that you would like help with: None Currently or been in a relationship where the following occur: No concerns reported THRIVE Score: 0 AUDIT C Alcohol Use Questionnaire (AUDIT-C) 1. How often do you have a drink containing alcohol?: Never 3. How often do you have six or more drinks on one occasion?: Never Total Score: 0 Score Reviewed/Action Taken: Yes LOUISE-7 AMB Questionnaire LOUISE-7 Date LOUISE - 7 assessed: 12/29/24 Feeling nervous, anxious, or on edge: 2 = More than half the days Not being able to stop or control worryin = More than half the days Worrying too much about different things: 2 = More than half the days Trouble relaxin = More than half the days Being so restless that it is hard to sit still: 2 = More than half the days Becoming easily annoyed or irritable: 0 = Not at all Feeling afraid as if something awful might happen: 0 = Not at all Total LOUISE-7 score (0-4 normal; 5-9 mild; 10-14 moderate; 15-21 severe): 10 Source: Developed by Drs. Forest Whiting, Maria Crowe, Jose Carlos Rinaldi and colleagues, with an educational inna from [employer]. Review of Systems Const Denies chills, Reports fatigue (chronic), Denies fever(s) and Reports headache(s) (occasionally) ENT Details: still feeling some lumps on the sides of her neck/throat Reports dysphagia (mostly due to recurrent sensation of tightness in her throat), Denies dizziness, Denies otalgia (but ears feel full often), Reports headache(s) (occasionally), Reports neck mass (feels a recurrent sensation of tightness on the left neck area), Reports neck pain (chronic, especially over the left side), Denies odynophagia and Denies sore throat Card Denies chest pain, Denies palpitations and Reports dyspnea on exertion (mild, chronic) Resp Denies chest congestion (but chest feels tight at times), Reports cough (on and off, non-productive) and Reports dyspnea on exertion (mild, chronic) GI Denies abdominal pain, Denies constipation, Reports dysphagia (mostly due to recurrent sensation of tightness in her throat), Denies heartburn, Denies diarrhea, Denies nausea, Denies odynophagia and Denies vomiting Denies difficulty voiding, Denies nocturia, Denies dysuria and Denies urinary urgency Musc Reports back pain, Reports myalgias (diffuse) and Reports neck pain (chronic, especially over the left side) Skin/Breast Denies rash Neuro Denies dizziness and Reports headache(s) (occasionally) Psych Denies anxiety and Denies depression Endo Reports fatigue (chronic) and Denies palpitations Sina/Lymph Denies easy bruising Physical exam (Primary Care) Vital Signs: Last Vital Signs Pulse 80 12/29/24 11:13 BP 132/80 12/29/24 11:13 Pulse Ox 98 12/29/24 11:13 Oxygen Delivery Method Room Air 12/29/24 11:13 BMI result Body Mass Index 20.4 Tobacco/Smoking Status: Tobacco use Status Tobacco use date assessed 12/29/24 12/29/24 11:18 Patient Tobacco Use Status Current everyday Tobacco 12/29/24 11:18 Tobacco use type Cigarette 12/29/24 11:18 e-Cigarette/Vaping Use Former Use 12/29/24 11:18 PHQ-9: PHQ-9 Score PHQ-9: Total score 0 12/29/24 11:18 Depression Screening Interpretation: Negative Thrive Assessment: Date of Thrive Assessment Date Thrive assessed 12/29/24 12/29/24 11:18 Currently or been in a relationship where the following occur: No concerns reported Const General: no acute distress and alert HENMT Ears: TM's normal bilaterally and EAC's normal Throat: Yes posterior oropharynx normal and Yes tonsils normal (no TP conge stion) Neck Other: (+) palpable, non-tender lymph nodes over the anterolateral aspect of her neck bilaterally; (+) tenderness over the muscles around the neck, especially over the posterior and left posterolateral aspect of the neck Neck: Yes no lymphadenopathy Thyroid: Thyroid normal Resp Auscultation: no rales, rhonchi (occasional) throughout, no wheezes and diminished lung sounds (slightly, bilaterally) Cardio Rate: regular rate Rhythm: regular rhythm Heart sounds: no murmurs GI Palpation (GI): Soft to palpation and nontender Auscultation: normal bowel sounds General: Yes no CVA tenderness Back/Spine/Pelvis Back: no CVA tenderness Cervical Spine: cervical muscular tenderness and Cervical spine tenderness Thoracic/Lumbar Spine: lumbar spinal tenderness Skin Rashes: no rashes Extrem General: Yes no clubbing, cyanosis or edema Coding Level of Care Code Est Pt Level 4 (74150) Diagnoses Mass of left side of neck R22.1 Dysphagia, unspecified type R13.10 Dysphagia type: unspecified Positive HAROLDO (antinuclear antibody) R76.8 Centrilobular emphysema J43.2 Emphysema type: centrilobular Cervical disc disease M50.90 Fibromyalgia M79.7 Smoker F17.200 Additional Codes PHQ-9 - 57755 - PHQ-9 Billing: Yes ([id number]) Assessment & Plan Assessment & Plan (1) Mass of left side of neck: Code(s): R22.1 - Localized swelling, mass and lump, neck Category: Medical Plan: Soft tissue neck CT done back in February 2024 revealed NO masses or fluid collection in the region of concern She reports that ENT did find a collection of pus on the left side of her throat and drained it back when she was seen in July 2024 and she recalls feeling a lot better with improvement of her neck/throat symptoms for a while following the procedure but her symptoms have gradually returned since so she thinks that the collection of pus is likely responsible for majority of her throat symptoms She does not have any follow up appointment scheduled with ENT and plans to call them up to schedule one [place] to have her throat examined again We have not received any reports or office visit notes from ENT and will try to reach out to them to have these sent over for review and documentation purposes (2) Dysphagia: Code(s): R13.10 - Dysphagia, unspecified Category: Medical Qualifiers: Dysphagia type: unspecified Qualified Code(s): R13.10 - Dysphagia, unspecified Plan: Barium swallow done at [facility] back in 2018 came out normal She has declined offers to send her back for repeat studies since She was referred previously to ENT for evaluation and recommendations and was seen by ENT in [place] sometime in July 2024 Her symptoms now appear to be most likely due to the collection of pus that was drained from the left side of her throat by ENT back then (3) Positive HAROLDO (antinuclear antibody): Code(s): R76.8 - Other specified abnormal immunological findings in serum Category: Medical Plan: Patient was referred to and see by Dr. Orr at [facility] back in October 2024 for her positive HAROLDO on her labs She was advised that although her HAROLDO was positive, she did not seem to have any exam findings to suggest the presence of an inflammatory joint disorder but she was started empirically on hydroxychloroquine and sent for some additional labs for further evaluation Patient states that she has not yet gotten around to getting the labs done but thinks that the hydroxychloroquine is helping as her overall symptoms of fatigue and diffuse pain seem to have improved somewhat since she was started on the Rx Continue Hydroxychloroquine 200 mg BID Follow up with rheumatology as scheduled (4) Emphysema lung: Comment: Emphysematous findings are noted in her chest CT report done at [facility] in 2019. Chest x-ray done in April 2020 also mentioned (+) hyperinflation of the lungs and with her smoking history, advised that she most likely has at least early COPD Code(s): J43.9 - Emphysema, unspecified Category: Medical Qualifiers: Emphysema type: centrilobular Qualified Code(s): J43.2 - Centrilobular emphysema Plan: Patient's chest x-rays back in August 2022 revealed (+) some blunting of the posterior sulcus and costophrenic angles bilaterally, that appear to be related to hyperinflation but her chest x-ray was otherwise normal She did have emphysematous findings are noted in her chest CT report done at [facility] in 2019 PFTs done in March 2022 were inconclusive as patient declined the bronchodilators for the test; preliminary results show some evidence of mild obstructive airway disease Patient states that she has not had any issues or problems with her breathing so far (5) Cervical disc disease: Code(s): M50.90 - Cervical disc disorder, unspecified, unspecified cervical region Category: Medical Plan: Patient has been to pain management (with both [facility] and [facility]) and has received injection Tx in the past but could not tolerate the injected medication(s), including a trial of Botox, due to side effects and she is still NOT interested in going back to pain management States that she has mostly been getting by with a combination of neck exercises, massage therapy and her Rxs that include Naproxen 500 mg BID PRN and Vicodin 5- 325 mg PRN occasionally (6) Fibromyalgia: Code(s): M79.7 - Fibromyalgia Category: Medical Plan: Continue Methocarbamol 750 mg Q 8 hours PRN Patient is again encouraged on regular exercise and physical activity to help better manage her fibromyalgia symptoms (7) Smoker: Code(s): F17.200 - Nicotine dependence, unspecified, uncomplicated Category: Social Hx Plan: Patient is counseled again on smoking cessation She has tried quitting unsuccessfully in the past with nicotine patches Plan Follow up in 6 months
--- OUTSIDE RECORDS SUMMARY | 2024-12-29 12:08 | XMS_ITS | Encounter Summary ---
Author Organization [facility] Address [address] [place] [address] [place] [id number] Phone Care Team Providers Care Foundry Equipment Mechanic Name Role Phone Kory eLon MD Primary Care Provider [phone] Encounter Details Date Type Department Care Team (Late st Contact Info) Description 05/31/2017 Procedure Pass [address] [place] [address] Social History Tobacco Use Types Packs/Day Years Used Date Smoking Tobacco: Some Days Smokeless Tobacco: Never Comments Unknown Sex and Gender Information Value Date Recorded Sex Assigned at Female 10/15/2017 9:42 AM EDT Legal Sex Female 10:45 AM EDT Gender Identity Female 10/15/2017 9:42 AM EDT Sexual Orientation Straight 10/15/2017 9: 42 AM EDT documented as of this encounter Plan of Treatment Not on file documented as of this encounter Visit Diagnoses Not on filedocumented in this encounter Care Teams Foundry Equipment Mechanic Relationship Specialty Start Date End Date Kory Leon MD [address] [place] [address] Dr [facility] [id number] PCP - General Internal Medicine 09/28/16 documented as of this encounter Additional Source Comments The information contained in this document represents components of the legal health record. It is not the complete legal health record.[facility]
--- OUTSIDE RECORDS SUMMARY | 2024-12-29 12:08 | XMS_ITS | Encounter Summary ---
Author Organization [facility] Address [address] [place] [id number] Phone Care Team Providers Care Fuel Assembler Name Role Phone Kory Leon MD Primary Care Provider [phone] Reason for Referral * Physical Therapy (Routine) - Closed Specialty Diagnoses / Procedures Referred By Contac t Referred To Contact Physical Therapy Diagnoses Encounter for rehabilitation Neck Pain Procedures Evaluate & Treat System, Provider Not In, PhD [id number] [place] [id number] Phone: tel: Referral ID Status Reason Start Date Expiration Date Visits Re quested Visits Authorized [id number] Closed 10/29/2017 04/18/2019 30 30 Encounter Details Date Type Department Care Team (Latest Contact Info) Description 10/29/2017 Transcribe Orders [facility] [address] [place] [address] Kory Leon MD [address] [place] [address] [place] [phone] Encounter for rehabilitation (Primary Dx) Social History Tobacco Use Types Packs/Day Years Used Date Smoking Tobacco: Some Days Smokeless Tobacco: Never Comments:1 pack a week Alcohol Use Standard Drinks/Week Comments No 0 (1 standard drink = 0.6 oz pur e alcohol) Comments Unknown Sex and Gender Information Value Date Recorded Sex Assigned at Female 10/15/2017 9:42 AM EDT Legal Sex Female 10:45 AM EDT Gender Identity Female 10/15/2017 9:42 AM EDT Sexual Orientation Straight 10/15/2017 9: 42 AM EDT documented as of this encounter Plan of Treatment Scheduled Referrals Name Type Priority Associated Diagnoses Orde r Schedule Ambulatory referral to [facility] Physical Therapy Outpatient Referral Routine Encounter for rehabilitation Ordered: 10/29/2017 documented as of this encounter Visit Diagnoses Diagnosis Encounter for rehabilitation- Primary documented in this encounter Care Teams Fuel Assembler Relationship Specialty Start Date End Date Kory Leon MD [address] [place] [address] [place] [id number] PCP - General Internal Medicine 09/28/16 documented as of this encounter Additional Source Comments The information contained in this document represents components of the legal health record. It is not the complete legal health record.[facility]
--- OUTSIDE RECORDS SUMMARY | 2024-12-29 12:08 | XMS_ITS | Patient Health Record ---
Author Organization [facility] [place] Address [address] [place] [address] Care Team Providers Care Community Cultural Development Officer Name Role Phone Vangie HENDERSON, Arielle Primary Care Provider Gokul Ross Unavailable [phone] Allergies Allergen (clinical drug ingredient) Drug/Non Drug Allergy documented on EMR Reaction Allergy Type Onset Date Status injectable steriods Unknown Drug Allergy Active latex Unknown Drug Allergy Active Adhesive Tape Unknown Drug Allergy Act arnulfo Shrimp/Shell Fish Unknown Drug Allergy Active Reason For Referral No Information Medications Medication SIG (Take, Route, Frequency, Duration) Notes Start Date End Date Status Naproxen 500 MG 1 tablet as needed Orally every 12 hrs; Duration: 30 09/03/2014 Active Keflex 500 MG 1 capsule Orally every 12 hrs; Duration: 07 days 05/10/2014 Not-Taking Methocarbamol Active Gabapentin 400 MG 1 capsule Orally Three times a day 05/16/2014 Active Gabapentin Not-Takin g zzzCompression Stockings 20-30mm Hg . . .; Duration: . 08/15/2014 Active Flexeril Not-Taking Hydroxychloroquine Sulfate 200 MG 1 tablet with food or milk Orally Once a day Not-Taking HYDROcodone-Acetaminophen Not-Taking Doxycycline Hyclate 100 MG Intravenous T wice a day Not-Taking Cefuroxime Axetil No t-Taking Erythromycin Not-Pastor ing Azithromycin Active HYDROcodone-Ibuprofen Not-Taking Z-Pac Active Social History Tobacco use other than smoking: Question Answer Notes Are you an other tobacco user? No Problems Problem Type SNOMED Code ICD Code Onset Dates Problem Status W/U Status Risk Notes Problem Pain in right foot ([id number]) Pain in right foot (M79.671) Active confirmed Plan Of Treatment Pending Test Test Name Order Date X ray : Foot, right 2V 04/06/2014 X ray : Foot, right 2V 05/10/2014 X ray : Foot, right 2V 05/16/2014 X ray : Foot, right 2V 05/23/2014 X ray : Foot, right 2V 05/30/2014 X ray : Foot, right 2V 07/04/2014 X ray : Foot, right 2V 08/15/2014 X ray : Foot, right 2V 03/06/2015 Insurance Providers Payer Name Payer Address Payer Phone Subscriber Number Group Number Insured Name Patient Relationship to Insured Coverage Start Date Coverage End Date [facility]ly [facility] [address] [place] [id number] Jorge Arredondo Spouse - patient is the spouse of the insured Medical (General) History Medical History History ICD Code Back pain Fibromyalgia Migraines Lyme disease Chicken pox Surgical History Surgery Date(Month/Year) kidney stones hemorrhoidectomy vein surgery right leg 10/10/2013 [place] Right 05/03/2013 Right foot surgery 06/07/14 Hospitalization History Reason Date(Month/Year) [facility] - removal foreign body right foot 06/07/14
--- OUTSIDE RECORDS SUMMARY | 2024-12-29 12:08 | XMS_ITS | Clinical Summary ---
Author Organization [facility] Address [address] [place] [address] Phone Care Team Providers Care Health Claims Examiner Name Role Phone Kory Leon MD Primary Care Provider [phone] [phone] Allergies Active Allergy Reactions Criticality Noted Date Comments Latex 02/16/2018 Prednisone 07/20/2018 Shellfish Containing Products 2017 Medications dapsone (ACZONE) 5 % topical gel 1 application to affected area Active clindamycin (CLINDAGEL) 1 % gel 1 application to affected area Active EPINEPHrine (EPIPEN) 0.3 mg/0.3 mL auto-injector as directed 5 Active naproxen (NAPROSYN) 500 MG tablet 1 tablet as needed Active baclofen (LIORESAL) 10 MG tablet Take 10 mg by mouth 3 (three) times a day. Active methocarbamol (ROBAXIN) 750 MG tablet Take 750 mg by mouth 4 (four) times a day. Active progesterone (PROMETRIUM) 200 mg capsule Take 1 capsule (200 mg total) by mouth nightly. X 12 days prn no menses x 2 months 12 capsule 3 9 Active Additional Information Patient not taking.Reported on 02/05/2021 Active Problems Problem Noted Date Diagnosed Date RLQ abdominal pain 06/06/2018 Overview (06/06/2018): Intermittent; may be non-oil gauger in origin Rectocele 02/16/2018 Overview (02/16/2018): With wide introitus Assessment & Plan (02/16/2018 12:54 PM EDT): Sxs and correlation with anatomy discussed; pessary is an option, pros and cons reviewed, agree surgery seems best approach; refer to [facility] urogyn Secondary oligomenorrhea 02/16/2018 Overview (02/16/2018): Normal FSH, Prl Assessment & Plan (02/16/2018 12:53 PM EDT): Not menopausal; explained role of periodic progesterone, she agreed, take Q 2 months if no menses Right ovarian cyst 01/31/2018 Overview (06/06/2018): < 2 cm, not enlarging Assessment & Plan (06/06/2018 2:56 PM EST): Uncertain if this is cause of her pain; surgery has risks of infection, bleeding, pain, organ injury and is not guaranteed to resolve the pain Assessment & Plan (02/16/2018 12:53 PM EDT): Repeat ordered Assessment & Plan (01/31/2018 1:17 PM EDT): Repeat u/s ordered for Mar 2018 Cervical radiculopathy 05/31/2017 Cervical facet joint syndrome 05/31/2017 Myelomalacia of cervical cord 05/31/2017 Family History Medical History Relation Comments CV disease Maternal Grandfather 2 Diabetes mellitus Maternal Grandfather 2 CV disease Maternal Grandmother 2 CV disease Mother 2 Hypertension Mother 2 Cancer Paternal Grandfather 2 Diabetes mellitus Paternal Grandfather 2 Relation Status Comments Maternal Grandfather 1 Maternal Grandfather 2 Maternal Grandmother 1 Maternal Grandmother 2 Mother 1 Mother 2 Paternal Grandfather 1 Paternal Grandfather 2 Social History Tobacco Use Types Packs/Day Years Used Date Smoking Tobacco: Every Day Cigarettes Smokeless Tobacco: Never Comments:2 packs a week- 6-7 cigs daily Alcohol Use Standard Drinks/Week Comments No 0 (1 standard drink = 0.6 oz pur e alcohol) Education Answer Date Recorded Are you interested in more education? Not on donny e 08/14/2022 Are you concerned about learning? Not on file 08/14/2022 No 08/14/2022 No 08/14/2022 Digital Access Answer Date Recorded No 09/14/2022 No 09/14/2022 Reliable internet access at home? Not on file 09/14/2022 Device with a working camera? Not on file Comments No Sex and Gender Information Value Date Recorded Sex Assigned at Female 10/15/2017 9:42 AM EDT Legal Sex Female 10:45 AM EDT Gender Identity Female 10/15/2017 9:42 AM EDT Sexual Orientation Straight 10/15/2017 9: 42 AM EDT Last Filed Vital Signs Vital Sign Reading Time Taken Comments Blood Pressure 145/96 02/05/2021 10:01 AM EDT Pulse 72 02/05/2021 10:01 AM EDT Temperature 35.8 C (96.4 F) 02/05/2021 10:01 AM EDT Respiratory Rate 16 02/05/2021 10:01 AM EDT Oxygen Saturation 98% 02/05/2021 10:01 AM EDT Inhaled Oxygen Concentration - - Weight 59 kg (130 lb) 02/05/2021 10:01 AM EDT Height 162.6 cm (5' 4 ) 02/05/2021 10:01 AM EDT Body Mass Index 22.31 02/05/2021 10:01 AM EDT Plan of Treatment Health Maintenance Due Date Last Done Comments LIPID PANEL 1970 DEPRESSION SCREENING 1982 SMOKING Hx and SMOKELESS TOBACCO SCREENING 09/11/1983 HEPATITIS C SCREENING 1988 HIV ONE-TIME SCREENING (18-6 5 YEARS) 1988 PNEUMOCOCCAL VACCINES (50+ years) (1 of 2 - PCV) 1989 COLOGUARD 09/11/2015 COLONOSCOPY 09/11/2015 COLORECTAL CANCER SCREENING 09/11/2015 FIT TEST 09/11/2015 FOBT 09/11/2015 SIGMOIDOSCOPY 09/11/2015 VIRTUAL COLONOSCOPY 09/11/2015 MAMMOGRAM 11/11/2017 11/12/2015 PAP SMEAR 05/14/2018 05/14/2015 ZOSTER VACCINES (1 of 2) 2020 INFLUENZA VACCINE (#1) 2024 COVID-19 VACCINE (1 - 2023-2 5 season) 2024 Adult Td,Tdap Booster 08/06/2025 08/07/2015 , 09/24/2010 HEPATITIS A VACCINES Aged Out No long er eligible based on patient's age to complete this topic HIB VACCINES Aged Out No longer eligi ble based on patient's age to complete this topic MENINGOCOCCAL VACCINES (ACWY) Aged Out No longer eligible based on patient's age to complete this topic MENINGOCOCCAL VACCINES (B) Aged Out N o longer eligible based on patient's age to complete this topic Medical Devices Not on file Insurance [facility] HE[employer] PLAN [facility] MEDICARE PART A & B Member Subscriber Plan / Payer (Ef fective 2016-Present) Name:Janette Valdivia Member ID:[id number] Relation to Subscriber:Self Name:Janette Valdivia Subscriber ID:[id number] Payer ID:[id number] Group ID:Not on file Type:Medicare Address: [address] [place] [address] [facility] HE[employer] PLAN [facility] MEDICARE PART A & B Member Subscriber Plan / Payer (Ef fective 2016-Present) Name:Janette Valdivia Member ID:[id number] Relation to Subscriber:Self Name:MichelleJanette ye Subscriber ID:[id number] Payer ID:[id number] Group ID:Not on file Type:Medicare Address: [address] [place] [address] [place] [address] FAMILY [facility] PLAN [facility] MEDICARE PART A & B [facility] [place] MEDICARE PART A & B [facility] [place] MEDICARE PART A & B [facility] MEDICARE PART A & B Member Subscriber Plan / Payer (Ef fective 2016-Present) Name:MichelleJanette ye Member ID:[id number] Relation to Subscriber:Self Name:MichelleJanette ye Subscriber ID:[id number] Payer ID:[id number] Group ID:Not on file Type:Medicare Address: [address] [place] [address] [facility] [employer] FAM[facility] PLAN [facility] MEDICARE PART A & B Member Subscriber Plan / Payer (Ef fective 2016-Present) Name:Janette Valdivia Member ID:[id number] Relation to Subscriber:Self Name:Janette Valdivia Subscriber ID:[id number] Payer ID:[id number] Group ID:Not on file Type:Medicare Address: [address] [place] [address] [facility] PART A & B [facility] SERVICES FAMILY HEALTH PLAN [facility] MEDICARE PART A & B Member Subscriber Plan / Payer (Ef fective 2016-Present) Name:MichelleJanette ye Member ID:[id number] Relation to Subscriber:Self Name:MichelletameraJanette paredes Subscriber ID:[id number] Payer ID:[id number] Group ID:Not on file Type:Medicare Address: [address] [place] [address] [facility] [employer]ILY [employer] PLAN [facility] Care Teams Health Claims Examiner Relationship Specialty Start Date End Date Kory Leon MD [address] [place] [address] [place] [address] PCP - General Internal Medicine 09/28/16 Additional Source Comments The information contained in this document represents components of the legal health record. It is not the complete legal health record.[facility]
--- OUTSIDE RECORDS SUMMARY | 2024-12-29 12:08 | XMS_ITS | Clinical Summary ---
Author Organization [employer] Address [address] [facility] [address] [place] [address] Care Team Providers Care Fund Manager Name Role Phone Unavailable Primary Care Provider Unavailabl e Social History Tobacco Use Types Packs/Day Years Used Date Smoking Tobacco: Never Assessed Comments Unknown Sex and Gender Information Value Date Recorded Sex Assigned at Female 02/16/2022 10:31 AM EDT Legal Sex Female 10:31 AM EDT Gender Identity Female 02/16/2022 10:31 AM EDT Sexual Orientation Choose not to disclose 2021 10:31 AM EDT Plan of Treatment Health Maintenance Due Date Last Done Comments CT Colonography 1970 Colonoscopy 1970 Colorectal Cancer Screening 1970 Depression Screening 1970 FIT DNA/Cologuard 1970 FIT 1970 FOBT 1970 Sigmoidoscopy 1970 Disability Screening 1970 Alcohol/Substance Use Screening 1982 Tobacco Screening 1982 DTaP/Tdap/Td Vaccines (1 - Tdap) 1989 Hepatitis B Vaccines (1 of 3 - 19+ 3-dose series) 1989 Pap Smear 09/11/1991 Cervical Cancer Screening 2000 HPV/Cotest 2000 Mammogram 2010 Pneumococcal Vaccine: 50+ Ye ars (1 of 1 - PCV) 2020 Zoster Vaccines (1 of 2) 2020 COVID-19 Vaccine (1 - 2023-2 5 season) 2024 Influenza Vaccine (#1) 2024 RSV Patients and Pa tients Aged 60 years or older (1 - 1-dose 75+ series) 2045 HIB Vaccines Aged Out No longer eligi ble based on patient's age to complete this topic HPV Vaccines Aged Out No longer eligi ble based on patient's age to complete this topic Hepatitis A Vaccines Aged Out No long er eligible based on patient's age to complete this topic IPV Vaccines Aged Out No longer eligi ble based on patient's age to complete this topic Meningococcal B Vaccine Aged Out No l onger eligible based on patient's age to complete this topic Meningococcal Vaccine Aged Out No sumi conrad eligible based on patient's age to complete this topic RSV under 20 months Aged Out No longe r eligible based on patient's age to complete this topic Rotavirus Vaccines Aged Out No longer eligible based on patient's age to complete this topic
--- OUTSIDE RECORDS SUMMARY | 2024-12-29 12:08 | XMS_ITS | Encounter Summary ---
Author Organization [facility] Address [address] [place] [address] Phone Care Team Providers Care Ocean Clam Boat Captain Name Role Phone Kory Leon MD Primary Care Provider [phone] [phone] Encounter Details Date Type Department Care Team (Late st Contact Info) Description 10/15/2017 Procedure Pass [facility], [facility] - [address] [address] Social History Tobacco Use Types Packs/Day Years [...] on filedocumented in this encounter Care Teams Ocean Clam Boat Captain Relationship Specialty Start Date End Date Kory Leon MD [address] [place] [address] [place] [address] PCP - General Internal Medicine 09/28/16 documented as of this encounter Additional Source Comments The information contained in this document represents components of the legal health record. It is not the complete legal health record.[facility]
--- OUTSIDE RECORDS SUMMARY | 2024-12-29 12:08 | XMS_ITS | Encounter Summary ---
Author Organization [facility] Address [address] [place] [address] Phone Care Team Providers Care Desulfurizer Operator Name Role Phone Kory Leon MD Primary Care Provider [phone] [phone] Reason for Referral * MRI/CAT Scan - Closed Specialty Diagnoses / Procedures Referred By Contac t Referred To Contact Radiology Diagnoses Left-sided headache Blurry vision, left eye Procedures CT Head Kory Leon MD Phone: tel: fax: Referral ID Status Reason Start Date Expiration Date Visits Re quested Visits Authorized [id number] Closed 05/20/2017 05/20/2018 1 1 Encounter Details Date Type Department Care Team (Late st Contact Info) Description 05/20/2017 Ancillary Orders Virtual Department [address] [place] [address] Kory Leon MD [address] [place] [address] [place] [address] Left-sided headache; Blurry vision, left eye Social History Tobacco Use Types Packs/Day Years [...] on file documented as of this encounter Results * CT HEAD WITHOUT CONTRAST (05/24/2017 10:16 AM EST) Anatomical Region Laterality Modality Head Computed Tomogra phy 05/24/2017 10:1 8 AM EST Impressions 05/24/2017 10:21 AM EST No intracranial hemorrhage, mass, infarction detected. No source of the headache is seen. TOTAL CTDIvol: 58.4 mGy POS: [id number] Narrative 05/24/2017 10:21 AM EST HISTORY: Left-sided headache and visual changes COMPARISON: None TECHNIQUE: Unenhanced imaging obtained from skull base to vertex. Sagittal and coronal reformats generated. Manual dose reduction technique tailored for patient and site of imaging. FINDINGS: No abnormal intra or extra-axial blood or fluid collection, mass, or mass effect is identified. Sulci and ventricles are within the range of normal. No gross orbital lesion. Pituitary not enlarged. Cerebellar tonsils not ectopic. No calvarial destructive process. Visualized portions of the paranasal sinuses are clear. Mastoids and middle ear spaces are clear. Procedure Note Kelsey Caro MD - 05/24/2017 HISTORY: Left-sided headache and visual changes COMPARISON: None TECHNIQUE: Unenhanced imaging obtained from skull base to vertex.Sagittal and coronal reformats generated. Manual dose reduction techniquetailored for patient and site of imaging. FINDINGS: No abnormal intra or extra-axial blood or fluid collection, mass, or masseffect is identified. Sulci and ventricles are within the range of normal.No gross orbital lesion. Pituitary not enlarged. Cerebellar tonsils notectopic. No calvarial destructive process. Visualized portions of theparanasal sinuses are clear. Mastoids and middle ear spaces are clear. IMPRESSION: No intracranial hemorrhage, mass, infarction detected. No source of theheadache is seen. TOTAL CTDIvol: 58.4 mGy POS: [id number] Kory Leon MD IMG CT HEAD/NECK Final Re sult documented in this encounter Visit Diagnoses Diagnosis Left-sided headache Headache Blurry vision, left eye Other specified visual disturbances Left-sided headache Headache Blurry vision, left eye Other specified visual disturbances documented in this encounter Care Teams Desulfurizer Operator Relationship Specialty Start Date End Date Kory Leon MD [address] [place] [address] [place] [address] PCP - General Internal Medicine 09/28/16 documented as of this encounter Additional Source Comments The information contained in this document represents components of the legal health record. It is not the complete legal health record.[facility]
--- OUTSIDE RECORDS SUMMARY | 2024-12-29 12:08 | XMS_ITS | Encounter Summary ---
Author Organization [employer] Address [address] [facility] 7t [place] [address] Care Team Providers Care Oim Architect Name Role Phone Unavailable Primary Care Provider Unavailabl e Encounter Details Date Type Department Care Team (Latest Contact Info) Description 03/09/2019 Abstract [facility] CONVERSIONS Dental, Provider, DDS Social History Tobacco Use Types Packs/Day Years Used Date Smoking Tobacco: Never Assessed Comments Unknown Sex and Gender Information Value Date Recorded Sex Assigned at Female 02/16/2022 10:31 AM EDT Legal Sex Female 10:31 AM EDT Gender Identity Female 02/16/2022 10:31 AM EDT Sexual Orientation Choose not to disclose 2021 10:31 AM EDT documented as of this encounter Plan of Treatment Not on file documented as of this encounter Visit Diagnoses Not on filedocumented in this encounter
--- OUTSIDE RECORDS SUMMARY | 2024-12-29 12:08 | XMS_ITS | Encounter Summary ---
Author Organization [facility] Address [address] [place] [address] Phone Care Team Providers Care Grain And Yeast Plants Supervisor Name Role Phone Kory Leon MD Primary Care Provider [phone] [phone] Encounter Details Date Type Department Care Team (Late st Contact Info) Description 06/28/2017 Transcribe Orders [facility] Specimen Processing [address] [place] [address] Conchis Denson MD [address], [place] [address] Steatocystoma (Primary Dx) Social History Tobacco Use Types [...] documented as of this encounter Results * Wound culture/smear (06/28/2017 3:43 PM EDT) Specimen Source/ Description BREAST MICROSCOPIC OBSERVATION IN WOUND BY GRAM, BACTERIA IDENTITIED BY SKIN AEROBE CULTURE / LEFT LATERAL BREAST 1 2:00 REGION AND LEFT AXILLARY TAIL OF BREAST BREAST [facility] Special Requests None [facility] GRAM STAIN Rare WBC'S , NO ORGANISMS SEEN [facility] Culture/Test NO GROWTH 48HRS C [facility] Report Status 06/30/2017 FINAL [facility] Other (Breast) 06/28/2017 3: 43 PM EDT 06/28/2017 3:45 PM EDT us Conchis Denson MD MICROBIOLOGY - [facility] ANOOP [place] Final Result [facility] [address] [place] [address] documented in this encounter Visit Diagnoses Diagnosis Steatocystoma- Primary Sebaceous cyst documented in this encounter Care Teams Grain And Yeast Plants Supervisor Relationship Specialty Start Date End Date Kory Leon MD [address] [place] [address] [place] [address] PCP - General Internal Medicine 09/28/16 documented as of this encounter Additional Source Comments The information contained in this document represents components of the legal health record. It is not the complete legal health record.[facility]
--- OUTSIDE RECORDS SUMMARY | 2024-12-29 12:08 | XMS_ITS | Encounter Summary ---
Author Organization [facility] Address [address] [place] [address] [place] [address] Phone Care Team Providers Care Weight Reduction Specialist Name Role Phone Kory Leon MD Primary Care Provider [phone] [phone] Encounter Details Date Type Department Care Team (Late st Contact Info) Description 05/20/2017 Procedure Pass [facility], Ct Scan - [address] [address] Social History Tobacco Use Types Packs/Day Years [...] on filedocumented in this encounter Care Teams Weight Reduction Specialist Relationship Specialty Start Date End Date Kory Leon MD [address] [place] [address] [place] [address] PCP - General Internal Medicine 09/28/16 documented as of this encounter Additional Source Comments The information contained in this document represents components of the legal health record. It is not the complete legal health record.[facility]
--- OUTSIDE RECORDS SUMMARY | 2024-12-29 12:08 | XMS_ITS | Encounter Summary ---
Author Organization [facility] Address [address] [place] [address] Phone Care Team Providers Care Filler In Name Role Phone Kory Leon MD Primary Care Provider [phone] [phone] Encounter Details Date Type Department Care Team (Late st Contact Info) Description 04/26/2020 Ancillary Orders Virtual Department [address] [place] [address] Kory Leon MD [address] [place] [address] [place] [address] Cough Social History Tobacco Use Types Packs/Day Years Used Date Smoking Tobacco: Some Days Cigarettes Smokeless Tobacco: Never Comments:2 packs a week- 6-7 cigs daily Alcohol Use Standard Drinks/Week Comments No 0 (1 standard drink = 0.6 oz pur e alcohol) Comments No Sex and Gender Information Value Date Recorded Sex Assigned at Female 10/15/2017 9:42 AM EDT Legal Sex Female 10:45 AM EDT Gender Identity Female 10/15/2017 9:42 AM EDT Sexual Orientation Straight 10/15/2017 9: 42 AM EDT documented as of this encounter Plan of Treatment Not on file documented as of this encounter Results * XR CHEST PA AND LATERAL 2 VIEWS (04/26/2020 11:18 AM EST) Anatomical Region Laterality Modality Chest Radiographic Kaia ging 04/26/2020 11:2 7 AM EST Impressions 04/26/2020 11:31 AM EST Bilateral hyperinflation. No evidence of acute cardiopulmonary disease. POS - [id number] Narrative 04/26/2020 11:31 AM EST HISTORY: Cough COMPARISON: Chest x-ray 07/20/2018 and 07/11/2015. FINDINGS: PA and lateral views of the chest obtained. Stable bilateral hyperinflation. Lungs appear clear. No pleural effusions or pneumothorax. Great vessel and cardiomediastinal contours are stable. Heart size remains normal. Procedure Note Jairo Fry MD - 04/26/2020 HISTORY: Cough COMPARISON: Chest x-ray 07/20/2018 and 07/11/2015. FINDINGS: PA and lateral views of the chest obtained. Stable bilateral hyperinflation. Lungs appear clear. No pleural effusionsor pneumothorax. Great vessel and cardiomediastinal contours are stable.Heart size remains normal. IMPRESSION: Bilateral hyperinflation. No evidence of acute cardiopulmonary disease. POS - [id number] us Kory Leon MD IMG XR CHEST Final Res ult documented in this encounter Visit Diagnoses Diagnosis Cough Cough documented in this encounter Care Teams Filler In Relationship Specialty Start Date End Date Kory Leon MD [address] [place] [address] [place] [address] PCP - General Internal Medicine 09/28/16 documented as of this encounter Additional Source Comments The information contained in this document represents components of the legal health record. It is not the complete legal health record.[facility]
--- OUTSIDE RECORDS SUMMARY | 2024-12-29 12:09 | XMS_ITS | Encounter Summary ---
Author Organization [facility] Address [address] [place] [address] Phone Care Team Providers Care Glass Cut Off Tender Name Role Phone Kory Leon MD Primary Care Provider [phone] [phone] Encounter Details Date Type Department Care Team (Late st Contact Info) Description 06/01/2018 Ancillary Orders [facility], X-Ray - [place] [place] [address] Michael Ratliff, DPMagda Bunion, right foot Social History Tobacco Use Types Packs/Day Years [...] as of this encounter Results * XR FOOT 3 OR MORE VIEWS (RIGHT) (06/01/2018 11:45 AM EST) Anatomical Region Laterality Modality Foot Right Radiographic Kaia ging 06/01/2018 12:2 9 PM EST Impressions 06/01/2018 12:33 PM EST Hallux valgus with first MTP joint degenerative arthrosis and adjacent soft tissue swelling. No joint erosions. POS - [id number] Narrative 06/01/2018 12:33 PM EST XR FOOT 3 OR MORE VIEWS (RIGHT) HISTORY: - BUNION [KNOWN DX]. Pain first, second and third toes. TECHNIQUE: 3 views right foot. Weightbearing. COMPARISON: None FINDINGS: There is mild hallux valgus. Mild to moderate first MTP joint space narrowing, small marginal osteophytes. Focal soft tissue swelling medial aspect adjacent to the first MTP joint. No joint erosions. No subluxation, dislocation or acute fracture. Procedure Note Daria Fajardo MD - 06/01/2018 XR FOOT 3 OR MORE VIEWS (RIGHT) HISTORY: - BUNION [KNOWN DX]. Pain first, second and third toes. TECHNIQUE: 3 views right foot. Weightbearing. COMPARISON: None FINDINGS: There is mild hallux valgus. Mild to moderate first MTP joint spacenarrowing, small marginal osteophytes. Focal soft tissue swelling medialaspect adjacent to the first MTP joint. No joint erosions. No subluxation,dislocation or acute fracture. IMPRESSION: Hallux valgus with first MTP joint degenerative arthrosis and adjacentsoft tissue swelling. No joint erosions. POS - [id number] Michael Ratliff DPM IMG XR LOWER EXTREMI TY Final Result documented in this encounter Visit Diagnoses Diagnosis Bunion, right foot Bunion documented in this encounter Care Teams Glass Cut Off Tender Relationship Specialty Start Date End Date Kory Leon MD [address] [place] [address] [place] [address] PCP - General Internal Medicine 09/28/16 documented as of this encounter Additional Source Comments The information contained in this document represents components of the legal health record. It is not the complete legal health record.[facility]
--- OUTSIDE RECORDS SUMMARY | 2024-12-29 12:09 | XMS_ITS | Encounter Summary ---
Author Organization [facility] Address [address] [place] [id number] Phone Care Team Providers Care Note Keeper Name Role Phone Kory Leon MD Primary Care Provider [phone] Encounter Details Date Type Department Care Team (Late st Contact Info) Description 07/15/2018 Ancillary Orders Virtual Department [address] [place] [address] Kory Leon MD [address] [place] [address] [place] [address] Dysphagia, unspecified type Social History Tobacco Use Types Packs/Day Years [...] documented as of this encounter Results * FL BARIUM SWALLOW ESOPHAGRAM SINGLE CONTRAST (07/25/2018 10:05 AM EDT) Anatomical Region Laterality Modality Chest Radiographic Kaia ging 07/25/2018 9:42 AM EDT Impressions 07/25/2018 11:08 AM EDT No explanation for dysphagia. FLUOROSCOPY TIME: 1 min. 32 sec; 39 IMAGES/FRAMES POS - [id number] Narrative 07/25/2018 11:08 AM EDT HISTORY: Dysphagia. EXAM: Biphasic esophagram, additional cine (video) images of the pharynx and upper esophagus. COMPARISON: CT neck 07/20/2018. FINDINGS: No significant laryngeal penetration and no aspiration during the exam. No evidence of esophageal strictures. No definite mucosal abnormalities. No evidence of intrinsic or extrinsic masses. No significant esophageal dysmotility. Tiny hiatal hernia. The patient vomited towards the end of the exam. The patient was unable to swallow a 13 mm barium tablet. Procedure Note Jairo Mancilla MD - 07/25/2018 HISTORY: Dysphagia. EXAM: Biphasic esophagram, additional cine (video) images of the pharynxand upper esophagus. COMPARISON: CT neck 07/20/2018. FINDINGS: No significant laryngeal penetration and no aspiration during the exam.No evidence of esophageal strictures. No definite mucosal abnormalities.No evidence of intrinsic or extrinsic masses. No significant esophagealdysmotility. Tiny hiatal hernia. The patient vomited towards the end ofthe exam. The patient was unable to swallow a 13 mm barium tablet. IMPRESSION: No explanation for dysphagia. FLUOROSCOPY TIME: 1 min. 32 sec; 39 IMAGES/FRAMES POS - [id number] Kory Leon MD [facility] Final Res ult documented in this encounter Visit Diagnoses Diagnosis Dysphagia, unspecified type Dysphagia, unspecified type documented in this encounter Care Teams Note Keeper Relationship Specialty Start Date End Date Kory Leon MD [address] [place] [address] [place] [id number] PCP - General Internal Medicine 09/28/16 documented as of this encounter Additional Source Comments The information contained in this document represents components of the legal health record. It is not the complete legal health record.[facility]
--- OUTSIDE RECORDS SUMMARY | 2024-12-29 12:09 | XMS_ITS | Encounter Summary ---
Author Organization [facility] Address [address] [place] [address] Phone Care Team Providers Care Food Service Kitchen Supervisor Name Role Phone Kory Leon MD Primary Care Provider [phone] Encounter Details Date Type Department Care Team (Late st Contact Info) Description 06/01/2018 Ancillary Orders [facility], X[place]Ray - [place] [address] [place] [address] Kory Leon MD [address] [place] [address] [facility] [place] [address] Chronic nasal congestion Social History Tobacco Use Types Packs/Day Years [...] as of this encounter Results * XR PARANASAL SINUSES 3 OR MORE VIEWS (06/01/2018 11:45 AM EST) Anatomical Region Laterality Modality Face Radiographic Kaia ging 06/01/2018 12:3 3 PM EST Impressions 06/01/2018 12:35 PM EST No evidence for acute sinusitis. POS [id number] Narrative 06/01/2018 12:35 PM EST HISTORY: - CHRONIC PAIN [KNOWN DX] COMPARISON: None. TECHNIQUE: Dutta, White, lateral and submental vertex views. FINDINGS: The paranasal sinuses are clear. There are no air-fluid levels within the paranasal sinuses. No bone destruction, fracture or erosions. Mastoids appear normal. Orbital finney appear normal. Procedure Note Daria Fajardo MD - 06/01/2018 HISTORY: - CHRONIC PAIN [KNOWN DX] COMPARISON: None. TECHNIQUE: Dutta, White, lateral and submental vertex views. FINDINGS: The paranasal sinuses are clear. There are no air-fluid levels within theparanasal sinuses. No bone destruction, fracture or erosions. Mastoidsappear normal. Orbital finney appear normal. IMPRESSION: No evidence for acute sinusitis. POS [id number] us Kory Leon MD IMG XR HEAD AND SHUNT SER IES Final Result documented in this encounter Visit Diagnoses Diagnosis Chronic nasal congestion Other diseases of nasal cavity and sinuses Chronic nasal congestion Other diseases of nasal cavity and sinuses documented in this encounter Care Teams Food Service Kitchen Supervisor Relationship Specialty Start Date End Date Kory Leon MD [address] [place] [address] [place] [address] PCP - General Internal Medicine 09/28/16 documented as of this encounter Additional Source Comments The information contained in this document represents components of the legal health record. It is not the complete legal health record.[facility]
== END 2024-12-29 11:37 | disposition home or self-care (01) ==
LOC: HO.HMCH 10:31
PROVIDERS: PCP Internal Medicine; Visit Provider Internal Medicine
DX: R22.1 Localized swelling, mass and lump, neck (principal); R13.10 Dysphagia, unspecified; R76.8 Other specified abnormal immunological findings in serum; J43.2 Centrilobular emphysema; M50.90 Cervical disc disorder, unspecified, unspecified cervical region; M79.7 Fibromyalgia; F17.200 Nicotine dependence, unspecified, uncomplicated

== ENCOUNTER → 2024-12-29 10:31 | Outpatient (BNVA) | payer OTHER, SELFPAY | PROVIDERS: PCP Internal Medicine; Visit Provider Internal Medicine | DX: R22.1 Localized swelling, mass and lump, neck (principal); R13.10 Dysphagia, unspecified; R76.8 Other specified abnormal immunological findings in serum; J43.2 Centrilobular emphysema; M50.90 Cervical disc disorder, unspecified, unspecified cervical region; M79.7 Fibromyalgia; F17.210 Nicotine dependence, cigarettes, uncomplicated | CPT/HCPCS: 96127; 99212 ==